=== PATIENT | female | born 1945 | race Caucasian/White ===

== ENCOUNTER 2017-12-25 10:08 | Emergency (ER) | payer OTHER, MEDICARE ==
[~2017-12-25] VITALS: Ht 162.6 cm; Wt 78.6 kg
[2017-12-25] MEDS ORDERED: IBUP200C5 PO (10:29)
[2017-12-25] MEDS ORDERED: OXYC-302 PO (10:29)
[2017-12-25 11:03] LABS: ALANINE AMINOTRANSFERASE 11 U/L (12-78); ALBUMIN 2.4 g/dL (3.4-5.0); ANION GAP 10 mmol/L (5-15); CALCIUM 8.6 mg/dL (8.5-10.1); CHLORIDE 102 mmol/L (98-107); CREATININE 0.48 mg/dL (0.55-1.02)
[2017-12-25 11:05] LABS: ALKALINE PHOSPHATASE 55 U/L (45-117); BILIRUBIN,TOTAL 0.5 mg/dL (0.2-1.0); TOTAL PROTEIN 6.6 g/dL (6.4-8.2)
[2017-12-25 11:07] LABS: CULTURE INDICATED? YES; MICROSCOPIC INDICATED
[2017-12-25 11:18] LABS: BASOPHILS # (AUTO) 0.09 x10^3/uL (0-0.1); BASOPHILS % (AUTO) 1 % (0-1); EOSINOPHILS # (AUTO) 0.01 x10^3/uL (0-0.4); EOSINOPHILS % (AUTO) 0 % (1-7); LYMPHOCYTES # (AUTO) 1.47 x10^3/uL (1-3.4); LYMPHOCYTES % (AUTO) 12 % (22-44); MD NO; MEAN CORPUSCULAR HEMOGLOBIN 29.4 pg (27.0-34.8); MEAN CORPUSCULAR HGB CONC 33.3 g/dL (32.4-35.8); MEAN CORPUSCULAR VOLUME 88.2 fL (80-100); MEAN PLATELET VOLUME 9.4 fL (7.4-10.4); MONOCYTES # (AUTO) 0.59 x10^3/uL (0.2-0.8); MONOCYTES % (AUTO) 5 % (2-9); NEUTROPHILS # (AUTO) 10.12 x10^3/uL (1.8-6.8); NEUTROPHILS % (AUTO) 82 % (42-75); PLATELET COUNT 296 x10^3/uL (130-400); RED BLOOD COUNT 5.12 x10^6/uL (3.82-5.3); RED CELL DISTRIBUTION WIDTH 13.9 % (9.6-15.2)
[2017-12-25] MEDS ORDERED: LIDOCAINE 1%, 20ML ONE (11:47)
[2017-12-25 13:53] VITALS: BP 120/67
== END 2017-12-25 13:56 | disposition home or self-care (01) ==
LOC: ED 11:15
DX: R06.00 Dyspnea, unspecified (principal); J90 Pleural effusion, not elsewhere classified; R82.99 Other abnormal findings in urine; Z87.891 Personal history of nicotine dependence; Z98.890 Other specified postprocedural states
CPT/HCPCS: 32555; 36415; 49083; 71045; 76700; 80053; 81001; 83690; 85025; 87086; 93005; 99285; J3490

== ENCOUNTER 2018-01-20 12:24 | Inpatient (IN) | payer OTHER, MEDICARE ==
[~2018-01-20] VITALS: Ht 162.6 cm; Wt 74.9 kg
[~2018-01-20 12:24] MED LIST: IBUP200C5 PO; OXYC-302 PO
[2018-01-20] MEDS ORDERED: PLEASE ENTER HEIGHT AND WEIGHT MC SCH (13:00)
[2018-01-20] MEDS ORDERED: SODIUM CHLORIDE FLUSH 10ML SYR IVF ONE (13:00)
[2018-01-20 13:31] LABS: MEAN CORPUSCULAR HEMOGLOBIN 28.7 pg (27.0-34.8); MEAN CORPUSCULAR VOLUME 86.8 fL (80-100); MEAN PLATELET VOLUME 8.5 fL (7.4-10.4); PLATELET COUNT 565 x10^3/uL (130-400); RED BLOOD COUNT 4.29 x10^6/uL (3.82-5.3); RED CELL DISTRIBUTION WIDTH 15.2 % (9.6-15.2)
[2018-01-20 13:33] LABS: PROTHROMBIN TIME 10.3 Seconds (9.6-11.5)
[2018-01-20 13:36] LABS: ALANINE AMINOTRANSFERASE 12 U/L (12-78); ALBUMIN 2.1 g/dL (3.4-5.0); ANION GAP 7 mmol/L (5-15); CALCIUM 8.2 mg/dL (8.5-10.1); CHLORIDE 104 mmol/L (98-107); CREATININE 0.65 mg/dL (0.55-1.02)
[2018-01-20 13:38] LABS: ALKALINE PHOSPHATASE 60 U/L (45-117); BILIRUBIN,TOTAL 0.2 mg/dL (0.2-1.0); TOTAL PROTEIN 6.3 g/dL (6.4-8.2)
[2018-01-20 14:07] LABS: BASOPHILS # (AUTO) 0.04 x10^3/uL (0-0.1); BASOPHILS % (AUTO) 0 % (0-1); EOSINOPHILS % (AUTO) 0 % (1-7); LYMPHOCYTES # (AUTO) 0.48 x10^3/uL (1-3.4); LYMPHOCYTES % (AUTO) 3 % (22-44); MD SCAN; MONOCYTES # (AUTO) 0.21 x10^3/uL (0.2-0.8); MONOCYTES % (AUTO) 1 % (2-9); NEUTROPHILS # (AUTO) 15.69 x10^3/uL (1.8-6.8); NEUTROPHILS % (AUTO) 96 % (42-75)
[2018-01-20] MEDS ORDERED: ONDA4TAB10 PO (15:08)
[2018-01-20] MEDS ORDERED: DEXA4TAB PO (15:08)
[2018-01-20] MEDS ORDERED: OMNIPAQUE 350 MG/ML, 100ML BOTTLE ONE (15:52)
[2018-01-20] MEDS ORDERED: SODIUM CHLORIDE FLUSH 10ML SYR IVF PRN (17:00)
[2018-01-20] MEDS ORDERED: LIDOCAINE 1%, 20ML ONE (17:09)
[2018-01-20 17:19] LABS: MICROSCOPIC NOT IND
[2018-01-20 17:21] LABS: CULTURE INDICATED? NO
[2018-01-20 18:46] LABS: CELLS COUNTED 81
[2018-01-20 18:55] VITALS: BP 109/70
[2018-01-20] MEDS ORDERED: POTASSIUM CHLORIDE 20 MEQ in SODIUM CHLORIDE 0.45% 1,000 ML IV SCH (22:30)
[2018-01-20] MEDS ORDERED: ONDANSETRON ODT 4 MG PO PRN (22:30)
[2018-01-21 01:49] VITALS: BP 116/64
[2018-01-21 04:48] LABS: ALBUMIN 1.7 g/dL (3.4-5.0); ANION GAP 5 mmol/L (5-15); CALCIUM 7.9 mg/dL (8.5-10.1); CHLORIDE 105 mmol/L (98-107)
[2018-01-21 04:51] LABS: ALANINE AMINOTRANSFERASE 9 U/L (12-78); ALKALINE PHOSPHATASE 51 U/L (45-117); BILIRUBIN,TOTAL 0.3 mg/dL (0.2-1.0); CREATININE 0.55 mg/dL (0.55-1.02); TOTAL PROTEIN 5.2 g/dL (6.4-8.2)
[2018-01-21 05:06] LABS: BASOPHILS % (AUTO) 0 % (0-1); EOSINOPHILS % (AUTO) 0 % (1-7); LYMPHOCYTES # (AUTO) 0.48 x10^3/uL (1-3.4); LYMPHOCYTES % (AUTO) 4 % (22-44); MD NO; MEAN CORPUSCULAR HEMOGLOBIN 28.5 pg (27.0-34.8); MEAN CORPUSCULAR VOLUME 86.5 fL (80-100); MEAN PLATELET VOLUME 8.9 fL (7.4-10.4); MONOCYTES # (AUTO) 0.16 x10^3/uL (0.2-0.8); MONOCYTES % (AUTO) 2 % (2-9); NEUTROPHILS # (AUTO) 10.55 x10^3/uL (1.8-6.8); NEUTROPHILS % (AUTO) 94 % (42-75); PLATELET COUNT 447 x10^3/uL (130-400); RED BLOOD COUNT 3.74 x10^6/uL (3.82-5.3); RED CELL DISTRIBUTION WIDTH 15.4 % (9.6-15.2)
[2018-01-21] MEDS: DEXAMETHASONE 4 MG TABLET PO SCH ×4 (06:05→23:52)
[2018-01-21 07:09] VITALS: BP 115/71
[2018-01-21 12:31] VITALS: BP 107/68
[2018-01-21 20:20] VITALS: BP 118/69
[2018-01-22 02:56] VITALS: BP 140/76
[2018-01-22] MEDS: DEXAMETHASONE 4 MG TABLET PO SCH ×4 (05:24→23:53)
[2018-01-22 06:30] VITALS: BP 118/73
[2018-01-22] MEDS: OXYcodone/APAP 5/325MG TABLET PO PRN (11:30)
[2018-01-22] MEDS ORDERED: LIDOCAINE 1%, 20ML ONE (11:49)
[2018-01-22 12:53] VITALS: BP 136/74
[2018-01-22 18:36] VITALS: BP 130/77
[2018-01-23 01:33] VITALS: BP 138/92
[2018-01-23] MEDS: DEXAMETHASONE 4 MG TABLET PO SCH ×3 (05:22→17:59)
[2018-01-23 07:48] VITALS: BP 138/83
[2018-01-23 13:29] VITALS: BP 117/74
[2018-01-23 19:39] VITALS: BP_SYST 112; BP_SYST 135; BP_DIAS 70; BP_DIAS 80
[2018-01-24] MEDS: DEXAMETHASONE 4 MG TABLET PO SCH ×4 (01:05→18:24)
[2018-01-24 03:21] VITALS: BP 144/82
[2018-01-24 06:57] VITALS: BP 134/84
[2018-01-24 09:48] LABS: MEAN CORPUSCULAR HEMOGLOBIN 27.9 pg (27.0-34.8); MEAN CORPUSCULAR HGB CONC 32.5 g/dL (32.4-35.8); MEAN CORPUSCULAR VOLUME 85.9 fL (80-100); MEAN PLATELET VOLUME 8.5 fL (7.4-10.4); PLATELET COUNT 522 x10^3/uL (130-400); RED BLOOD COUNT 4.48 x10^6/uL (3.82-5.3); RED CELL DISTRIBUTION WIDTH 15.9 % (9.6-15.2)
[2018-01-24 10:13] LABS: BASOPHILS # (AUTO) 0.01 x10^3/uL (0-0.1); BASOPHILS % (AUTO) 0 % (0-1); EOSINOPHILS % (AUTO) 0 % (1-7); LYMPHOCYTES # (AUTO) 0.32 x10^3/uL (1-3.4); LYMPHOCYTES % (AUTO) 5 % (22-44); MD SCAN; MONOCYTES # (AUTO) 0.01 x10^3/uL (0.2-0.8); MONOCYTES % (AUTO) 0 % (2-9); NEUTROPHILS # (AUTO) 6.68 x10^3/uL (1.8-6.8); NEUTROPHILS % (AUTO) 95 % (42-75)
[2018-01-24 13:00] VITALS: BP 144/86
[2018-01-24 19:24] VITALS: BP 137/82
[2018-01-24] MEDS: IBUPROFEN 200 MG TABLET PO PRN (21:54)
[2018-01-25] MEDS: DEXAMETHASONE 4 MG TABLET PO SCH ×5 (00:25→23:54)
[2018-01-25 04:10] VITALS: BP 156/80
[2018-01-25 05:11] LABS: MEAN CORPUSCULAR HEMOGLOBIN 28.2 pg (27.0-34.8); MEAN CORPUSCULAR HGB CONC 32.9 g/dL (32.4-35.8); MEAN CORPUSCULAR VOLUME 85.8 fL (80-100); MEAN PLATELET VOLUME 8.1 fL (7.4-10.4); PLATELET COUNT 406 x10^3/uL (130-400); RED BLOOD COUNT 3.97 x10^6/uL (3.82-5.3); RED CELL DISTRIBUTION WIDTH 15.8 % (9.6-15.2)
[2018-01-25 05:23] LABS: ANION GAP 5 mmol/L (5-15); CALCIUM 8.3 mg/dL (8.5-10.1); CHLORIDE 101 mmol/L (98-107); CREATININE 0.42 mg/dL (0.55-1.02)
[2018-01-25 05:59] LABS: BASOPHILS # (AUTO) 0.01 x10^3/uL (0-0.1); BASOPHILS % (AUTO) 0 % (0-1); EOSINOPHILS % (AUTO) 0 % (1-7); LYMPHOCYTES # (AUTO) 0.43 x10^3/uL (1-3.4); LYMPHOCYTES % (AUTO) 8 % (22-44); MD SCAN; MONOCYTES # (AUTO) 0.01 x10^3/uL (0.2-0.8); MONOCYTES % (AUTO) 0 % (2-9); NEUTROPHILS # (AUTO) 4.72 x10^3/uL (1.8-6.8); NEUTROPHILS % (AUTO) 91 % (42-75)
[2018-01-25 07:39] VITALS: BP 131/80
[2018-01-25] MEDS: OXYcodone/APAP 5/325MG TABLET PO PRN (08:54)
[2018-01-25] MEDS ORDERED: LIDOCAINE 1%, 20ML ONE (09:00)
[2018-01-25 12:22] VITALS: BP 116/63
[2018-01-25 19:53] VITALS: BP 116/72
[2018-01-26 02:02] VITALS: BP 126/69
[2018-01-26] MEDS: DEXAMETHASONE 4 MG TABLET PO SCH ×4 (06:11→23:51)
[2018-01-26 07:45] VITALS: BP 116/72
[2018-01-26 08:00] LABS: INTERNATIONAL NORMALIZED RATIO 1.03 (0.93-1.1); PROTHROMBIN TIME 10.7 Seconds (9.6-11.5)
[2018-01-26 08:10] LABS: MEAN CORPUSCULAR HEMOGLOBIN 27.9 pg (27.0-34.8); MEAN CORPUSCULAR HGB CONC 32.8 g/dL (32.4-35.8); MEAN CORPUSCULAR VOLUME 85.2 fL (80-100); MEAN PLATELET VOLUME 7.8 fL (7.4-10.4); PLATELET COUNT 376 x10^3/uL (130-400); RED BLOOD COUNT 4.08 x10^6/uL (3.82-5.3); RED CELL DISTRIBUTION WIDTH 15.2 % (9.6-15.2)
[2018-01-26 08:39] LABS: BASOPHILS # (AUTO) 0.01 x10^3/uL (0-0.1); BASOPHILS % (AUTO) 0 % (0-1); EOSINOPHILS % (AUTO) 0 % (1-7); LYMPHOCYTES # (AUTO) 0.51 x10^3/uL (1-3.4); LYMPHOCYTES % (AUTO) 13 % (22-44); MD SCAN; MONOCYTES # (AUTO) 0.02 x10^3/uL (0.2-0.8); MONOCYTES % (AUTO) 0 % (2-9); NEUTROPHILS # (AUTO) 3.56 x10^3/uL (1.8-6.8); NEUTROPHILS % (AUTO) 87 % (42-75)
[2018-01-26] MEDS ORDERED: EPINEPHRINE 1 MG/ML, 1ML ONE (10:28)
[2018-01-26] MEDS ORDERED: BUPIVACAINE/PF 0.5% ONE (10:28)
[2018-01-26] MEDS ORDERED: HEPARIN 1,000 UNITS/ML, 10ML ONE (10:28)
[2018-01-26] MEDS ORDERED: SUCCINYLCHOLINE 20 MG/ML, 10ML ONE (10:34)
[2018-01-26] MEDS ORDERED: PROPOFOL 10 MG/ML, 20ML ONE (10:34)
[2018-01-26] MEDS ORDERED: NEOSTIGMINE 1 MG/ML, 10ML ONE (10:34)
[2018-01-26] MEDS ORDERED: ROCURONIUM 10 MG/ML,10ML ONE (10:34)
[2018-01-26] MEDS ORDERED: ONDANSETRON 2MG/ML, 2ML ONE ×2 (10:34→12:38)
[2018-01-26] MEDS ORDERED: CEFAZOLIN 1,000 MG ONE (10:34)
[2018-01-26] MEDS ORDERED: GLYCOPYRROLATE 0.2MG/1ML, 5ML ONE (10:34)
[2018-01-26] MEDS ORDERED: DOXYCYCLINE IVPB ONE ×2 (11:00)
[2018-01-26] MEDS ORDERED: LIDOCAINE MPF 1% IVPB ONE ×2 (11:00)
[2018-01-26] MEDS ORDERED: ONDANSETRON 2MG/ML, 2ML IVPush PRN (11:30)
[2018-01-26] MEDS ORDERED: ACETAMINOPHEN 325 MG TABLET PO PRN (11:30)
[2018-01-26] MEDS ORDERED: METOPROLOL 1 MG/ML, 5ML IV PRN (11:30)
[2018-01-26] MEDS ORDERED: EPHEDRINE 50 MG/ML, 1ML IVPush PRN (11:30)
[2018-01-26] MEDS ORDERED: hydrALAzine 20 MG/ML, 1ML IV PRN (11:30)
[2018-01-26] MEDS ORDERED: ALBUTEROL SULFATE 2.5 MG/3 ML NPPB PRN (11:30)
[2018-01-26] MEDS ORDERED: PROMETHAZINE 25 MG/ML, 1ML IV PRN (11:30)
[2018-01-26] MEDS ORDERED: LABETALOL 5MG/ML, 20ML IV PRN (11:30)
[2018-01-26] MEDS ORDERED: OXYcodone 5 MG/5 ML ORAL.SOL UDC PO PRN (11:30)
[2018-01-26] MEDS: FENTANYL PF 100 MCG/2ML IV PRN ×2 (11:55→12:20)
[2018-01-26] MEDS: HYDROmorphone 1 MG/ML, 1ML IV PRN ×2 (12:02→12:13)
[2018-01-26 14:14] VITALS: BP 121/74
[2018-01-26 14:25] LABS: FIO2 NT %
[2018-01-26 19:29] VITALS: BP 120/70
[2018-01-26] MEDS: IBUPROFEN 200 MG TABLET PO PRN (23:51)
[2018-01-27 01:35] VITALS: BP 117/72
[2018-01-27] MEDS: OXYcodone/APAP 5/325MG TABLET PO PRN (01:49)
[2018-01-27] MEDS: DEXAMETHASONE 4 MG TABLET PO SCH ×4 (05:33→23:41)
[2018-01-27 08:09] VITALS: BP 119/71
[2018-01-27 12:35] VITALS: BP 113/65
[2018-01-27 18:48] VITALS: BP 123/72
[2018-01-28 00:27] VITALS: BP 113/68
[2018-01-28 03:53] LABS: BASOPHILS # (AUTO) 0.01 x10^3/uL (0-0.1); BASOPHILS % (AUTO) 0 % (0-1); EOSINOPHILS % (AUTO) 0 % (1-7); LYMPHOCYTES # (AUTO) 0.39 x10^3/uL (1-3.4); LYMPHOCYTES % (AUTO) 11 % (22-44); MD NO; MEAN CORPUSCULAR HEMOGLOBIN 28.3 pg (27.0-34.8); MEAN CORPUSCULAR HGB CONC 33.6 g/dL (32.4-35.8); MEAN CORPUSCULAR VOLUME 84.3 fL (80-100); MEAN PLATELET VOLUME 8.1 fL (7.4-10.4); MONOCYTES # (AUTO) 0.29 x10^3/uL (0.2-0.8); MONOCYTES % (AUTO) 8 % (2-9); NEUTROPHILS # (AUTO) 2.98 x10^3/uL (1.8-6.8); NEUTROPHILS % (AUTO) 81 % (42-75); PLATELET COUNT 241 x10^3/uL (130-400); RED BLOOD COUNT 3.83 x10^6/uL (3.82-5.3); RED CELL DISTRIBUTION WIDTH 15.6 % (9.6-15.2)
[2018-01-28 03:54] LABS: CALCIUM 7.8 mg/dL (8.5-10.1); CHLORIDE 98 mmol/L (98-107)
[2018-01-28 03:58] LABS: ALANINE AMINOTRANSFERASE 18 U/L (12-78); ALBUMIN 1.9 g/dL (3.4-5.0); ALKALINE PHOSPHATASE 51 U/L (45-117); ANION GAP 3 mmol/L (5-15); BILIRUBIN,TOTAL 0.3 mg/dL (0.2-1.0); TOTAL PROTEIN 5.2 g/dL (6.4-8.2)
[2018-01-28] MEDS: OXYcodone/APAP 5/325MG TABLET PO PRN (05:07)
[2018-01-28] MEDS: DEXAMETHASONE 4 MG TABLET PO SCH ×4 (05:07→23:11)
[2018-01-28 08:19] VITALS: BP 131/78
[2018-01-28 13:24] VITALS: BP 108/73
[2018-01-28 19:18] VITALS: BP 104/61
[2018-01-29 03:09] VITALS: BP 117/69
[2018-01-29 04:47] LABS: MEAN CORPUSCULAR HEMOGLOBIN 28.3 pg (27.0-34.8); MEAN CORPUSCULAR HGB CONC 33.6 g/dL (32.4-35.8); MEAN CORPUSCULAR VOLUME 84.3 fL (80-100); MEAN PLATELET VOLUME 7.9 fL (7.4-10.4); PLATELET COUNT 222 x10^3/uL (130-400); RED BLOOD COUNT 3.75 x10^6/uL (3.82-5.3); RED CELL DISTRIBUTION WIDTH 15.5 % (9.6-15.2)
[2018-01-29 04:54] LABS: ANION GAP 7 mmol/L (5-15); CALCIUM 8.2 mg/dL (8.5-10.1); CHLORIDE 100 mmol/L (98-107); CREATININE 0.45 mg/dL (0.55-1.02)
[2018-01-29] MEDS: DEXAMETHASONE 4 MG TABLET PO SCH ×3 (05:07→18:09)
[2018-01-29] MEDS: OXYcodone/APAP 5/325MG TABLET PO PRN (05:08)
[2018-01-29 05:19] LABS: MD YES
[2018-01-29 05:23] LABS: <PLATELET ESTIMATE> ADEQUATE; <RBC MORPHOLOGY> NORMAL; LYMPH#(MANUAL) 0.78 x10^3/uL (1-3.4); LYMPHS% (MANUAL) 26 % (22-44); MONOS#(MANUAL) 0.42 x10^3/uL (0.3-2.7); MONOS% (MANUAL) 14 % (2-9); REACTIVE LYMPHS # (MANUAL) 0.03 x10^3/uL (0-0); REACTIVE LYMPHS % (MANUAL) 1 % (0-0); SEG#(MANUAL) 1.77 x10^3/uL (1.8-6.8); SEGS% (MANUAL) 59 % (42-75)
[2018-01-29 05:24] LABS: <PLT MORPHOLOGY> NORMAL PLT MORPH
[2018-01-29 07:25] VITALS: BP 132/78
[2018-01-29 13:20] VITALS: BP 124/71
[2018-01-29 19:47] VITALS: BP 114/73
[2018-01-30] MEDS: DEXAMETHASONE 4 MG TABLET PO SCH ×3 (00:11→12:28)
[2018-01-30 02:24] VITALS: BP 114/71
[2018-01-30 05:59] LABS: MEAN CORPUSCULAR HEMOGLOBIN 28.8 pg (27.0-34.8); MEAN CORPUSCULAR VOLUME 84.6 fL (80-100); MEAN PLATELET VOLUME 8.1 fL (7.4-10.4); PLATELET COUNT 190 x10^3/uL (130-400); RED CELL DISTRIBUTION WIDTH 15.4 % (9.6-15.2)
[2018-01-30 06:29] LABS: MD YES
[2018-01-30 06:34] LABS: <PLATELET ESTIMATE> ADEQUATE; <PLT MORPHOLOGY> NORMAL PLT MORPH; <RBC MORPHOLOGY> NORMAL; LYMPH#(MANUAL) 0.93 x10^3/uL (1-3.4); LYMPHS% (MANUAL) 30 % (22-44); MONOS#(MANUAL) 0.84 x10^3/uL (0.3-2.7); MONOS% (MANUAL) 27 % (2-9); SEG#(MANUAL) 1.33 x10^3/uL (1.8-6.8); SEGS% (MANUAL) 43 % (42-75)
[2018-01-30 08:19] VITALS: BP 119/78
== END 2018-01-30 14:01 | disposition home or self-care (01) | DRG 754 ==
LOC: ED 16:50 → EDIP 16:51 → ED 18:02 → 3NW 18:22
PROVIDERS: ADMIT Specialist; ATTEND Specialist
PROC: 0W993ZZ Drainage of Right Pleural Cavity, Percutaneous Approach (ICD-10-PCS; 2018-01-20)
PROC: 0W9G3ZZ Drainage of Peritoneal Cavity, Percutaneous Approach (ICD-10-PCS; 2018-01-22)
PROC: 0W9B3ZZ Drainage of Left Pleural Cavity, Percutaneous Approach (ICD-10-PCS; 2018-01-25)
PROC: 0W993ZZ Drainage of Right Pleural Cavity, Percutaneous Approach (ICD-10-PCS; 2018-01-25)
PROC: B548ZZA Ultrasonography of Superior Vena Cava, Guidance (ICD-10-PCS; 2018-01-26)
PROC: 3E0L4GC Introduction of Other Therapeutic Substance into Pleural Cavity, Percutaneous Endoscopic Approach (ICD-10-PCS; 2018-01-26)
PROC: 0W9930Z Drainage of Right Pleural Cavity with Drainage Device, Percutaneous Approach (ICD-10-PCS; 2018-01-26)
PROC: 0JH60WZ Insertion of Totally Implantable Vascular Access Device into Chest Subcutaneous Tissue and Fascia, Open Approach (ICD-10-PCS; principal; 2018-01-26 11:30)
PROC: 02HV33Z Insertion of Infusion Device into Superior Vena Cava, Percutaneous Approach (ICD-10-PCS; 2018-01-26 11:30)
PROC: 0WP930Z Removal of Drainage Device from Right Pleural Cavity, Percutaneous Approach (ICD-10-PCS; 2018-01-29)
DX: C56.9 Malignant neoplasm of unspecified ovary (principal); J96.01 Acute respiratory failure with hypoxia; J91.0 Malignant pleural effusion; C78.6 Secondary malignant neoplasm of retroperitoneum and peritoneum; R18.8 Other ascites; Z99.81 Dependence on supplemental oxygen; D70.9 Neutropenia, unspecified; J98.11 Atelectasis; Z87.891 Personal history of nicotine dependence; Z90.710 Acquired absence of both cervix and uterus; Z90.49 Acquired absence of other specified parts of digestive tract; Z87.01 Personal history of pneumonia (recurrent); Z92.21 Personal history of antineoplastic chemotherapy
CPT/HCPCS: 32555; 36415; 36600; 49083; 71045; 71046; 71275; 76705; 77001; 80048; 80053; 81003; 82150; 82803; 82945; 83605; 83615; 83986; 84145; 84157; 85025; 85610; 85730; 87040; 87070; 87205; 88112; 88305; 88341; 88342; 89051; 93005; 94640; 99285; C1729; J0171; J0690; J1170; J1644; J2405; J2704; J2710; J3010; J3480; J3490; Q0162; Q9967; C1788; G0461; J0330

== ENCOUNTER 2018-02-15 13:55 | Inpatient (IN) | payer OTHER, MEDICARE ==
[~2018-02-15] VITALS: Ht 162.6 cm; Wt 71.6 kg
[~2018-02-15 13:55] MED LIST changes: +DEXA4TAB PO; +ONDA4TAB10 PO
[2018-02-15 14:40] LABS: BASOPHILS # (AUTO) 0.02 x10^3/uL (0-0.1); BASOPHILS % (AUTO) 1 % (0-1); EOSINOPHILS # (AUTO) 0.05 x10^3/uL (0-0.4); EOSINOPHILS % (AUTO) 1 % (1-7); LYMPHOCYTES # (AUTO) 1.86 x10^3/uL (1-3.4); LYMPHOCYTES % (AUTO) 35 % (22-44); MD NO; MEAN CORPUSCULAR HEMOGLOBIN 27.8 pg (27.0-34.8); MEAN CORPUSCULAR HGB CONC 32.8 g/dL (32.4-35.8); MEAN CORPUSCULAR VOLUME 84.9 fL (80-100); MEAN PLATELET VOLUME 8.2 fL (7.4-10.4); MONOCYTES # (AUTO) 0.39 x10^3/uL (0.2-0.8); MONOCYTES % (AUTO) 7 % (2-9); NEUTROPHILS # (AUTO) 3.05 x10^3/uL (1.8-6.8); NEUTROPHILS % (AUTO) 57 % (42-75); PLATELET COUNT 587 x10^3/uL (130-400); RED BLOOD COUNT 4.17 x10^6/uL (3.82-5.3); RED CELL DISTRIBUTION WIDTH 19.5 % (9.6-15.2)
[2018-02-15 14:50] LABS: ALANINE AMINOTRANSFERASE 13 U/L (12-78); ALBUMIN 2.2 g/dL (3.4-5.0); ANION GAP 5 mmol/L (5-15); CALCIUM 8.9 mg/dL (8.5-10.1); CHLORIDE 103 mmol/L (98-107); CREATININE 0.42 mg/dL (0.55-1.02)
[2018-02-15 14:52] LABS: ALKALINE PHOSPHATASE 56 U/L (45-117); BILIRUBIN,TOTAL 0.5 mg/dL (0.2-1.0); TOTAL PROTEIN 6.4 g/dL (6.4-8.2)
[2018-02-15] MEDS ORDERED: SODIUM CHLORIDE FLUSH 10ML SYR IVF ONE (16:00)
[2018-02-15] MEDS ORDERED: LIDOCAINE 2%, 10ML ONE ×2 (16:15→16:47)
[2018-02-15 16:17] LABS: INTERNATIONAL NORMALIZED RATIO 1.02 (0.93-1.1); PROTHROMBIN TIME 10.6 Seconds (9.6-11.5)
[2018-02-15] MEDS ORDERED: SODIUM CHLORIDE FLUSH 10ML SYR IVF PRN (16:30)
[2018-02-15 17:22] VITALS: BP 119/69
[2018-02-15] MEDS ORDERED: OXYcodone/APAP 5/325MG TABLET PO PRN (19:00)
[2018-02-15] MEDS ORDERED: ONDANSETRON 4 MG TABLET PO PRN (19:00)
[2018-02-15 19:29] LABS: BASOPHILS # (AUTO) 0.01 x10^3/uL (0-0.1); BASOPHILS % (AUTO) 0 % (0-1); EOSINOPHILS # (AUTO) 0.04 x10^3/uL (0-0.4); EOSINOPHILS % (AUTO) 1 % (1-7); LYMPHOCYTES # (AUTO) 0.89 x10^3/uL (1-3.4); LYMPHOCYTES % (AUTO) 19 % (22-44); MD NO; MEAN CORPUSCULAR HEMOGLOBIN 28.1 pg (27.0-34.8); MEAN CORPUSCULAR VOLUME 85.4 fL (80-100); MEAN PLATELET VOLUME 7.9 fL (7.4-10.4); MONOCYTES # (AUTO) 0.23 x10^3/uL (0.2-0.8); MONOCYTES % (AUTO) 5 % (2-9); NEUTROPHILS # (AUTO) 3.44 x10^3/uL (1.8-6.8); NEUTROPHILS % (AUTO) 75 % (42-75); PLATELET COUNT 503 x10^3/uL (130-400); RED BLOOD COUNT 3.92 x10^6/uL (3.82-5.3); RED CELL DISTRIBUTION WIDTH 19.4 % (9.6-15.2)
[2018-02-15 19:41] LABS: ALANINE AMINOTRANSFERASE 12 U/L (12-78); ALBUMIN 1.9 g/dL (3.4-5.0); ANION GAP 6 mmol/L (5-15); CALCIUM 8.1 mg/dL (8.5-10.1); CHLORIDE 104 mmol/L (98-107); CREATININE 0.68 mg/dL (0.55-1.02)
[2018-02-15 19:44] LABS: ALKALINE PHOSPHATASE 49 U/L (45-117); BILIRUBIN,TOTAL 0.3 mg/dL (0.2-1.0); TOTAL PROTEIN 5.6 g/dL (6.4-8.2)
[2018-02-15 20:13] VITALS: BP 109/66
[2018-02-15] MEDS: SODIUM CHLORIDE 0.45% 1,000 ML IV SCH (20:38)
[2018-02-16 02:07] VITALS: BP 105/56
[2018-02-16 07:51] VITALS: BP 118/69
[2018-02-16] MEDS: SODIUM CHLORIDE 0.45% 1,000 ML IV SCH (07:51)
[2018-02-16 14:06] VITALS: BP 104/67
[2018-02-16 14:16] VITALS: BP 153/72
== END 2018-02-16 17:45 | disposition home or self-care (01) | DRG 755 ==
LOC: ED 16:01 → EDIP 16:02 → ED 16:13 → 3NW 17:15
PROVIDERS: ADMIT Specialist; ATTEND Specialist
PROC: 0W993ZZ Drainage of Right Pleural Cavity, Percutaneous Approach (ICD-10-PCS; principal; 2018-02-15)
PROC: 0W9G3ZZ Drainage of Peritoneal Cavity, Percutaneous Approach (ICD-10-PCS; 2018-02-16)
PROC: 0W9B3ZZ Drainage of Left Pleural Cavity, Percutaneous Approach (ICD-10-PCS; 2018-02-16)
DX: C56.9 Malignant neoplasm of unspecified ovary (principal); R18.0 Malignant ascites; J90 Pleural effusion, not elsewhere classified; I50.9 Heart failure, unspecified; Z85.43 Personal history of malignant neoplasm of ovary; Z87.891 Personal history of nicotine dependence; Z90.710 Acquired absence of both cervix and uterus; Z90.49 Acquired absence of other specified parts of digestive tract
CPT/HCPCS: 32555; 36415; 49083; 71045; 80053; 83690; 85025; 85610; 85730; 93005; 99285; J3490

== ENCOUNTER 2018-06-08 08:23 | Day surgery (SDC) | payer MEDICARE, OTHER ==
[~2018-06-08] VITALS: Ht 160 cm; Wt 82.0 kg
[~2018-06-08 08:23] MED LIST changes: +APIX2.5T PO; +DEXA4TAB66 PO; +MAGN400T36 PO; +POTA20TA14 PO; +WARF2.5T PO-COUM; +WARF3TAB PO
[2018-06-08 09:25] VITALS: BP 108/66
[2018-06-08] MEDS ORDERED: SODIUM CHLORIDE 0.9% 1,000 ML IV SCH (10:00)
[2018-06-08] MEDS ORDERED: LIDOCAINE-MPF 2% ,5ML ONE (10:12)
[2018-06-08] MEDS ORDERED: MIDAZOLAM 1 MG/ML, 5ML ONE (11:06)
[2018-06-08] MEDS ORDERED: FLUMAZENIL 0.1 MG/1 ML, 5ML ONE (11:06)
[2018-06-08] MEDS ORDERED: NALOXONE 1 MG/ML, 2ML ONE (11:06)
[2018-06-08] MEDS ORDERED: FENTANYL PF 100 MCG/2ML ONE (11:06)
[2018-06-08] MEDS ORDERED: VISIPAQUE 320MG/ML, 50ML BOTTLE ONE (11:59)
== END 2018-06-08 13:30 ==
LOC: OUT 08:23
PROVIDERS: ATTEND Specialist
DX: R18.8 Other ascites (principal); J44.9 Chronic obstructive pulmonary disease, unspecified; I50.9 Heart failure, unspecified; Z86.711 Personal history of pulmonary embolism; Z98.890 Other specified postprocedural states; Z72.89 Other problems related to lifestyle; Z87.891 Personal history of nicotine dependence; Z79.899 Other long term (current) drug therapy; Z85.43 Personal history of malignant neoplasm of ovary
CPT/HCPCS: 32555; 37191; 76937; 99156; 99157; C1769; C1880; C1894; J2250; J3010; J3490; J7030; Q9967; J2310

== ENCOUNTER → 2018-08-15 | Outpatient (CLI) | payer MEDICARE, OTHER ==
[~2018-08-15] MED LIST changes: +IBUP-1623 PO; -IBUP200C5 PO; +ONDA4TAB7 PO; +OXYC-306 PO
== END | disposition home or self-care (01) ==
LOC: CFH 11:40
PROVIDERS: ATTEND Physician Assistant Surgical
DX: M48.54XA Collapsed vertebra, not elsewhere classified, thoracic region, initial encounter for fracture (principal); M51.34 Other intervertebral disc degeneration, thoracic region; J90 Pleural effusion, not elsewhere classified
CPT/HCPCS: 72072

== ENCOUNTER → 2018-09-07 | Outpatient (CLI) | payer MEDICARE, OTHER ==
[2018-09-07 12:34] LABS: BASOPHILS # (AUTO) 0.02 x10^3/uL (0-0.1); BASOPHILS % (AUTO) 0 % (0-1); EOSINOPHILS # (AUTO) 0.02 x10^3/uL (0-0.4); EOSINOPHILS % (AUTO) 0 % (1-7); LYMPHOCYTES # (AUTO) 0.92 x10^3/uL (1-3.4); LYMPHOCYTES % (AUTO) 6 % (22-44); MD NO; MEAN CORPUSCULAR HEMOGLOBIN 25.5 pg (27.0-34.8); MEAN CORPUSCULAR HGB CONC 31.9 g/dL (32.4-35.8); MEAN CORPUSCULAR VOLUME 79.8 fL (80-100); MEAN PLATELET VOLUME 9.5 fL (7.4-10.4); MONOCYTES # (AUTO) 0.45 x10^3/uL (0.2-0.8); MONOCYTES % (AUTO) 3 % (2-9); NEUTROPHILS % (AUTO) 90 % (42-75); PLATELET COUNT 409 x10^3/uL (130-400); RED CELL DISTRIBUTION WIDTH 19.7 % (9.6-15.2)
[2018-09-07 12:46] LABS: ALANINE AMINOTRANSFERASE 26 U/L (12-78); ALBUMIN 3.6 g/dL (3.4-5.0); ANION GAP 10 mmol/L (5-15); CALCIUM 10.4 mg/dL (8.5-10.1); CHLORIDE 96 mmol/L (98-107)
[2018-09-07 12:48] LABS: ALKALINE PHOSPHATASE 135 U/L (45-117); BILIRUBIN,TOTAL 0.7 mg/dL (0.2-1.0); CREATININE 0.57 mg/dL (0.55-1.02)
== END | disposition home or self-care (01) ==
LOC: CFH 09:07
PROVIDERS: ATTEND Physician Assistant Surgical
DX: Z13.820 Encounter for screening for osteoporosis (principal); S32.000A Wedge compression fracture of unspecified lumbar vertebra, initial encounter for closed fracture; X58.XXXA Exposure to other specified factors, initial encounter; Y93.89 Activity, other specified; Y92.89 Other specified places as the place of occurrence of the external cause; Y99.8 Other external cause status; M85.88 Other specified disorders of bone density and structure, other site; M51.36 Other intervertebral disc degeneration, lumbar region; M41.86 Other forms of scoliosis, lumbar region
CPT/HCPCS: 36415; 72100; 77080; 80053; 85025; 86304

== ENCOUNTER 2018-09-22 14:41 | Emergency (ER) | payer MEDICARE, OTHER ==
[~2018-09-22] VITALS: Ht 160 cm; Wt 80.0 kg
[~2018-09-22 14:41] MED LIST changes: -CALC1CAP8 PO; -METH-356 PO; -MIRT15TA3 PO; -OMNIPAQUE 350 MG/ML, 100ML BOTTLE ONE; -POLY17PO5 PO; -POTA25TA4 PO; -TAMS-11 PO
[2018-09-22] MEDS ORDERED: SODIUM CHLORIDE FLUSH 10ML SYR IVF ONE (15:30)
[2018-09-22 15:45] LABS: BASOPHILS # (AUTO) 0.03 x10^3/uL (0-0.1); BASOPHILS % (AUTO) 1 % (0-1); EOSINOPHILS # (AUTO) 0.09 x10^3/uL (0-0.4); EOSINOPHILS % (AUTO) 1 % (1-7); LYMPHOCYTES # (AUTO) 1.79 x10^3/uL (1-3.4); LYMPHOCYTES % (AUTO) 26 % (22-44); MD NO; MEAN CORPUSCULAR HEMOGLOBIN 25.4 pg (27.0-34.8); MEAN CORPUSCULAR HGB CONC 32.5 g/dL (32.4-35.8); MEAN PLATELET VOLUME 8.6 fL (7.4-10.4); MONOCYTES # (AUTO) 0.51 x10^3/uL (0.2-0.8); MONOCYTES % (AUTO) 7 % (2-9); NEUTROPHILS # (AUTO) 4.57 x10^3/uL (1.8-6.8); NEUTROPHILS % (AUTO) 65 % (42-75); PLATELET COUNT 311 x10^3/uL (130-400); RED BLOOD COUNT 4.98 x10^6/uL (3.82-5.3); RED CELL DISTRIBUTION WIDTH 20.2 % (9.6-15.2)
[2018-09-22 15:56] LABS: ALANINE AMINOTRANSFERASE 18 U/L (12-78); ALBUMIN 3.1 g/dL (3.4-5.0); ANION GAP 10 mmol/L (5-15); CALCIUM 9.6 mg/dL (8.5-10.1); CHLORIDE 98 mmol/L (98-107); CREATININE 0.51 mg/dL (0.55-1.02)
[2018-09-22 15:58] LABS: ALKALINE PHOSPHATASE 110 U/L (45-117); BILIRUBIN,TOTAL 0.4 mg/dL (0.2-1.0); TOTAL PROTEIN 7.4 g/dL (6.4-8.2)
[2018-09-22] MEDS ORDERED: morphine SULFATE 10 MG/ML, 1ML IVPush ONE (16:00)
[2018-09-22] MEDS ORDERED: POLY17PO5 PO (16:07)
[2018-09-22] MEDS ORDERED: POTA25TA4 PO (16:07)
[2018-09-22] MEDS ORDERED: CALC1CAP8 PO (16:07)
[2018-09-22] MEDS ORDERED: METH-356 PO (16:07)
[2018-09-22] MEDS ORDERED: TAMS-11 PO (16:07)
[2018-09-22] MEDS ORDERED: MIRT15TA3 PO (16:07)
[2018-09-22] MEDS ORDERED: MORPHINE SULFATE 4 MG/ML, 1ML ONE (16:16)
[2018-09-22 16:52] LABS: MICROSCOPIC AUTO
[2018-09-22 16:55] LABS: CULTURE INDICATED? YES
[2018-09-22 17:36] VITALS: BP 137/75
== END 2018-09-22 18:02 | disposition home or self-care (01) ==
LOC: ED 17:44
DX: C34.91 Malignant neoplasm of unspecified part of right bronchus or lung (principal); J91.0 Malignant pleural effusion; C79.60 Secondary malignant neoplasm of unspecified ovary; N30.00 Acute cystitis without hematuria; R10.84 Generalized abdominal pain; K59.00 Constipation, unspecified
CPT/HCPCS: 36415; 71045; 74177; 80053; 81001; 83690; 85025; 87077; 87086; 87186; 96374; 99285; J2270

== ENCOUNTER → 2018-09-22 | Outpatient (CLI) | payer MEDICARE, OTHER ==
[~2018-09-22] MED LIST changes: +CALC1CAP8 PO; +METH-356 PO; +MIRT15TA3 PO; +OMNIPAQUE 350 MG/ML, 100ML BOTTLE ONE; +POLY17PO5 PO; +POTA25TA4 PO; +TAMS-11 PO
== END | disposition home or self-care (01) ==
LOC: CFH 13:37
PROVIDERS: ATTEND Physician Assistant Surgical
DX: M48.54XA Collapsed vertebra, not elsewhere classified, thoracic region, initial encounter for fracture (principal)
CPT/HCPCS: 72072; Q9967

== ENCOUNTER 2018-11-14 15:01 | Inpatient (IN) | payer MEDICARE, OTHER ==
[~2018-11-14] VITALS: Ht 160 cm; Wt 83.0 kg
[~2018-11-14 15:01] MED LIST changes: +CALC1CAP8 PO; +METH10TA2 PO; +MIRT15TA3 PO; +POLY17PO5 PO; +POTA25TA4 PO; +TAMS-11 PO
[2018-11-14 16:34] VITALS: BP 122/88
[2018-11-14 16:52] LABS: BASOPHILS # (AUTO) 0.04 x10^3/uL (0-0.1); BASOPHILS % (AUTO) 0 % (0-1); EOSINOPHILS # (AUTO) 0.01 x10^3/uL (0-0.4); EOSINOPHILS % (AUTO) 0 % (1-7); LYMPHOCYTES # (AUTO) 1.46 x10^3/uL (1-3.4); LYMPHOCYTES % (AUTO) 10 % (22-44); MD NO; MEAN CORPUSCULAR HEMOGLOBIN 25.2 pg (27.0-34.8); MEAN CORPUSCULAR HGB CONC 32.6 g/dL (32.4-35.8); MEAN CORPUSCULAR VOLUME 77.3 fL (80-100); MEAN PLATELET VOLUME 8.8 fL (7.4-10.4); MONOCYTES # (AUTO) 0.44 x10^3/uL (0.2-0.8); MONOCYTES % (AUTO) 3 % (2-9); NEUTROPHILS # (AUTO) 13.06 x10^3/uL (1.8-6.8); NEUTROPHILS % (AUTO) 87 % (42-75); PLATELET COUNT 428 x10^3/uL (130-400); RED BLOOD COUNT 6.11 x10^6/uL (3.82-5.3); RED CELL DISTRIBUTION WIDTH 20.3 % (9.6-15.2)
[2018-11-14 17:00] LABS: ALANINE AMINOTRANSFERASE 11 U/L (12-78); ALBUMIN 3.3 g/dL (3.4-5.0); ANION GAP 15 mmol/L (5-15); CHLORIDE 89 mmol/L (98-107); CREATININE 1.07 mg/dL (0.55-1.02)
[2018-11-14] MEDS ORDERED: LACTATED RINGERS 1,000 ML IV SCH (17:00)
[2018-11-14] MEDS ORDERED: ZOLPIDEM 10MG TABLET PO PRN (17:00)
[2018-11-14 17:02] LABS: ALKALINE PHOSPHATASE 91 U/L (45-117); BILIRUBIN,TOTAL 0.7 mg/dL (0.2-1.0); TOTAL PROTEIN 7.8 g/dL (6.4-8.2)
[2018-11-14] MEDS ORDERED: IBUPROFEN 200 MG TABLET PO PRN (17:30)
[2018-11-14] MEDS ORDERED: ONDANSETRON 2MG/ML, 2ML IVPush PRN (17:30)
[2018-11-14 17:45] VITALS: BP 122/88
[2018-11-14] MEDS: morphine SULFATE 10 MG/ML, 1ML IV PRN ×3 (18:19→23:48)
[2018-11-14] MEDS ORDERED: OMNIPAQUE 350 MG/ML, 100ML BOTTLE ONE (19:28)
[2018-11-14] MEDS: METHADONE 10 MG TABLET PO SCH (19:52)
[2018-11-14] MEDS: APIXABAN 2.5 MG TABLET PO SCH (19:52)
[2018-11-14] MEDS: OXYcodone/APAP 7.5/325MG TABLET PO PRN (20:25)
[2018-11-14] MEDS: K-LYTE 25 MEQ TABLET.EFF PO SCH (20:26)
[2018-11-14 20:56] VITALS: BP 114/76
[2018-11-14] MEDS: POTASSIUM CHLORIDE 20 MEQ in LACTATED RINGERS 1,000 ML IV SCH (22:08)
[2018-11-14 22:59] LABS: MICROSCOPIC NOT IND
[2018-11-15 01:21] LABS: CLOSTRIDIUM DIFFICILE ANTIGEN NEGATIVE; CLOSTRIDIUM DIFFICILE TOXIN NEGATIVE (Negative)
[2018-11-15] MEDS: ZOLPIDEM 5MG TABLET PO PRN (01:30)
[2018-11-15 02:02] VITALS: BP 126/68
[2018-11-15 06:01] LABS: ALANINE AMINOTRANSFERASE 12 U/L (12-78); ALBUMIN 2.4 g/dL (3.4-5.0); ANION GAP 10 mmol/L (5-15); CALCIUM 8.4 mg/dL (8.5-10.1); CHLORIDE 92 mmol/L (98-107); CREATININE 0.97 mg/dL (0.55-1.02)
[2018-11-15 06:02] LABS: ALKALINE PHOSPHATASE 68 U/L (45-117); BILIRUBIN,TOTAL 0.5 mg/dL (0.2-1.0); TOTAL PROTEIN 5.6 g/dL (6.4-8.2)
[2018-11-15 06:05] LABS: BASOPHILS # (AUTO) 0.13 x10^3/uL (0-0.1); BASOPHILS % (AUTO) 1 % (0-1); EOSINOPHILS # (AUTO) 0.07 x10^3/uL (0-0.4); EOSINOPHILS % (AUTO) 1 % (1-7); LYMPHOCYTES # (AUTO) 1.75 x10^3/uL (1-3.4); LYMPHOCYTES % (AUTO) 16 % (22-44); MD NO; MEAN CORPUSCULAR HEMOGLOBIN 25.3 pg (27.0-34.8); MEAN CORPUSCULAR HGB CONC 32.9 g/dL (32.4-35.8); MEAN CORPUSCULAR VOLUME 76.8 fL (80-100); MEAN PLATELET VOLUME 8.8 fL (7.4-10.4); MONOCYTES # (AUTO) 0.85 x10^3/uL (0.2-0.8); MONOCYTES % (AUTO) 8 % (2-9); NEUTROPHILS # (AUTO) 8.42 x10^3/uL (1.8-6.8); NEUTROPHILS % (AUTO) 75 % (42-75); PLATELET COUNT 389 x10^3/uL (130-400); RED BLOOD COUNT 5.08 x10^6/uL (3.82-5.3); RED CELL DISTRIBUTION WIDTH 20.3 % (9.6-15.2)
[2018-11-15 07:13] VITALS: BP 129/83
[2018-11-15] MEDS: OXYcodone/APAP 7.5/325MG TABLET PO PRN ×2 (08:22→22:40)
[2018-11-15] MEDS: MIRTAZAPINE 15 MG TAB.RAPDIS PO SCH (08:24)
[2018-11-15] MEDS: MIRTAZAPINE 15 MG TABLET PO SCH (08:24)
[2018-11-15] MEDS: K-LYTE 25 MEQ TABLET.EFF PO SCH ×2 (08:24→20:21)
[2018-11-15] MEDS: APIXABAN 2.5 MG TABLET PO SCH ×2 (08:24→20:20)
[2018-11-15] MEDS: METHADONE 10 MG TABLET PO SCH ×2 (08:24→20:20)
[2018-11-15] MEDS: TAMSULOSIN 0.4 MG CAP.ER.24H PO SCH (08:24)
[2018-11-15] MEDS: POTASSIUM CHLORIDE 20 MEQ in LACTATED RINGERS 1,000 ML IV SCH ×2 (08:26→20:34)
[2018-11-15 14:28] VITALS: BP 109/69
[2018-11-15 19:21] VITALS: BP 128/77
[2018-11-16] MEDS: ONDANSETRON 2MG/ML, 2ML IV PRN ×4 (01:22→23:28)
[2018-11-16] MEDS: morphine SULFATE 10 MG/ML, 1ML IV PRN ×3 (01:22→23:29)
[2018-11-16 01:28] VITALS: BP 119/89
[2018-11-16] MEDS: POTASSIUM CHLORIDE 20 MEQ in LACTATED RINGERS 1,000 ML IV SCH ×2 (05:32→17:18)
[2018-11-16 07:18] VITALS: BP 123/87
[2018-11-16] MEDS: K-LYTE 25 MEQ TABLET.EFF PO SCH ×2 (09:00→21:00)
[2018-11-16] MEDS: MIRTAZAPINE 15 MG TABLET PO SCH (09:00)
[2018-11-16] MEDS: MIRTAZAPINE 15 MG TAB.RAPDIS PO SCH (09:43)
[2018-11-16] MEDS: APIXABAN 2.5 MG TABLET PO SCH ×2 (09:43→20:12)
[2018-11-16] MEDS: METHADONE 10 MG TABLET PO SCH ×2 (09:43→20:12)
[2018-11-16] MEDS: TAMSULOSIN 0.4 MG CAP.ER.24H PO SCH (09:43)
[2018-11-16 14:13] VITALS: BP 127/84
[2018-11-16] MEDS ORDERED: BISACODYL 10 MG SUPP PR PRN (16:30)
[2018-11-16 19:30] VITALS: BP 107/66
[2018-11-17] MEDS: POTASSIUM CHLORIDE 20 MEQ in LACTATED RINGERS 1,000 ML IV SCH ×3 (02:02→23:21)
[2018-11-17 02:06] VITALS: BP 100/65
[2018-11-17 06:32] LABS: ALBUMIN 1.8 g/dL (3.4-5.0); ANION GAP 6 mmol/L (5-15); CALCIUM 8.3 mg/dL (8.5-10.1); CHLORIDE 97 mmol/L (98-107)
[2018-11-17 06:37] LABS: ALANINE AMINOTRANSFERASE 9 U/L (12-78); ALKALINE PHOSPHATASE 66 U/L (45-117); BILIRUBIN,TOTAL 0.5 mg/dL (0.2-1.0); CREATININE 0.68 mg/dL (0.55-1.02); TOTAL PROTEIN 4.7 g/dL (6.4-8.2)
[2018-11-17 06:41] LABS: MEAN CORPUSCULAR HEMOGLOBIN 25.2 pg (27.0-34.8); MEAN CORPUSCULAR HGB CONC 32.4 g/dL (32.4-35.8); MEAN CORPUSCULAR VOLUME 77.8 fL (80-100); MEAN PLATELET VOLUME 8.3 fL (7.4-10.4); PLATELET COUNT 365 x10^3/uL (130-400); RED CELL DISTRIBUTION WIDTH 20.1 % (9.6-15.2)
[2018-11-17 06:42] LABS: BASOPHILS # (AUTO) 0.02 x10^3/uL (0-0.1); BASOPHILS % (AUTO) 0 % (0-1); EOSINOPHILS # (AUTO) 0.05 x10^3/uL (0-0.4); EOSINOPHILS % (AUTO) 1 % (1-7); LYMPHOCYTES # (AUTO) 1.68 x10^3/uL (1-3.4); LYMPHOCYTES % (AUTO) 15 % (22-44); MD SCAN; MONOCYTES # (AUTO) 0.78 x10^3/uL (0.2-0.8); MONOCYTES % (AUTO) 7 % (2-9); NEUTROPHILS # (AUTO) 8.53 x10^3/uL (1.8-6.8); NEUTROPHILS % (AUTO) 77 % (42-75)
[2018-11-17] MEDS: MIRTAZAPINE 15 MG TABLET PO SCH (09:00)
[2018-11-17] MEDS: K-LYTE 25 MEQ TABLET.EFF PO SCH ×2 (09:00→20:29)
[2018-11-17] MEDS: morphine SULFATE 10 MG/ML, 1ML IV PRN ×3 (09:17→22:27)
[2018-11-17] MEDS: ONDANSETRON 2MG/ML, 2ML IV PRN ×3 (09:17→22:27)
[2018-11-17] MEDS: MIRTAZAPINE 15 MG TAB.RAPDIS PO SCH (09:18)
[2018-11-17] MEDS: METHADONE 10 MG TABLET PO SCH ×2 (09:18→19:54)
[2018-11-17] MEDS: TAMSULOSIN 0.4 MG CAP.ER.24H PO SCH (09:18)
[2018-11-17] MEDS: APIXABAN 2.5 MG TABLET PO SCH ×2 (09:18→19:54)
[2018-11-17 09:36] VITALS: BP 106/68
[2018-11-17 13:14] VITALS: BP 118/77
[2018-11-17] MEDS: OXYcodone/APAP 7.5/325MG TABLET PO PRN (15:23)
[2018-11-17 20:27] VITALS: BP 119/80
[2018-11-18 02:32] VITALS: BP 118/77
[2018-11-18 07:08] LABS: BASOPHILS # (AUTO) 0.05 x10^3/uL (0-0.1); BASOPHILS % (AUTO) 1 % (0-1); EOSINOPHILS # (AUTO) 0.06 x10^3/uL (0-0.4); EOSINOPHILS % (AUTO) 1 % (1-7); LYMPHOCYTES # (AUTO) 1.45 x10^3/uL (1-3.4); LYMPHOCYTES % (AUTO) 14 % (22-44); MD NO; MEAN CORPUSCULAR HEMOGLOBIN 25.3 pg (27.0-34.8); MEAN CORPUSCULAR HGB CONC 32.8 g/dL (32.4-35.8); MEAN CORPUSCULAR VOLUME 77.3 fL (80-100); MEAN PLATELET VOLUME 8.4 fL (7.4-10.4); MONOCYTES # (AUTO) 0.73 x10^3/uL (0.2-0.8); MONOCYTES % (AUTO) 7 % (2-9); NEUTROPHILS # (AUTO) 8.17 x10^3/uL (1.8-6.8); NEUTROPHILS % (AUTO) 78 % (42-75); PLATELET COUNT 388 x10^3/uL (130-400); RED BLOOD COUNT 4.99 x10^6/uL (3.82-5.3); RED CELL DISTRIBUTION WIDTH 20.3 % (9.6-15.2)
[2018-11-18 07:16] LABS: ANION GAP 7 mmol/L (5-15); CALCIUM 8.1 mg/dL (8.5-10.1); CHLORIDE 97 mmol/L (98-107); CREATININE 0.72 mg/dL (0.55-1.02)
[2018-11-18] MEDS ORDERED: LIDOCAINE-MPF 1%, 5ML ONE (07:34)
[2018-11-18] MEDS: APIXABAN 2.5 MG TABLET PO SCH ×2 (09:00→21:17)
[2018-11-18 09:35] VITALS: BP 104/69
[2018-11-18] MEDS: TAMSULOSIN 0.4 MG CAP.ER.24H PO SCH (09:40)
[2018-11-18] MEDS: METHADONE 10 MG TABLET PO SCH ×2 (09:40→21:17)
[2018-11-18] MEDS: MIRTAZAPINE 15 MG TAB.RAPDIS PO SCH (09:40)
[2018-11-18] MEDS: ONDANSETRON 2MG/ML, 2ML IV PRN ×2 (09:46→23:15)
[2018-11-18 13:58] VITALS: BP 136/87
[2018-11-18 21:18] VITALS: BP 130/87
[2018-11-19 01:10] VITALS: BP 110/70
[2018-11-19 05:11] LABS: ALBUMIN 1.8 g/dL (3.4-5.0); ANION GAP 5 mmol/L (5-15); CALCIUM 8.1 mg/dL (8.5-10.1); CHLORIDE 98 mmol/L (98-107)
[2018-11-19 05:12] LABS: MEAN CORPUSCULAR HEMOGLOBIN 25.4 pg (27.0-34.8); MEAN CORPUSCULAR HGB CONC 32.6 g/dL (32.4-35.8); MEAN PLATELET VOLUME 8.6 fL (7.4-10.4); PLATELET COUNT 373 x10^3/uL (130-400); RED BLOOD COUNT 5.28 x10^6/uL (3.82-5.3); RED CELL DISTRIBUTION WIDTH 20.1 % (9.6-15.2)
[2018-11-19 05:16] LABS: ALANINE AMINOTRANSFERASE 9 U/L (12-78); ALKALINE PHOSPHATASE 72 U/L (45-117); BILIRUBIN,TOTAL 0.3 mg/dL (0.2-1.0); CREATININE 0.68 mg/dL (0.55-1.02)
[2018-11-19 05:43] LABS: BASOPHILS # (AUTO) 0.05 x10^3/uL (0-0.1); BASOPHILS % (AUTO) 1 % (0-1); EOSINOPHILS # (AUTO) 0.13 x10^3/uL (0-0.4); EOSINOPHILS % (AUTO) 1 % (1-7); LYMPHOCYTES # (AUTO) 1.71 x10^3/uL (1-3.4); LYMPHOCYTES % (AUTO) 16 % (22-44); MD SCAN; MONOCYTES # (AUTO) 0.79 x10^3/uL (0.2-0.8); MONOCYTES % (AUTO) 8 % (2-9); NEUTROPHILS # (AUTO) 7.84 x10^3/uL (1.8-6.8); NEUTROPHILS % (AUTO) 75 % (42-75)
[2018-11-19 06:55] VITALS: BP 104/67
[2018-11-19] MEDS: APIXABAN 2.5 MG TABLET PO SCH ×2 (08:32→22:55)
[2018-11-19] MEDS: ONDANSETRON 2MG/ML, 2ML IV PRN ×2 (08:32→20:58)
[2018-11-19] MEDS: MIRTAZAPINE 15 MG TAB.RAPDIS PO SCH (08:32)
[2018-11-19] MEDS: METHADONE 10 MG TABLET PO SCH ×2 (08:33→22:55)
[2018-11-19] MEDS: TAMSULOSIN 0.4 MG CAP.ER.24H PO SCH (08:33)
[2018-11-19] MEDS ORDERED: MAGNESIUM SULFATE PMX 2GM/50ML 50 ML IV ONE (10:00)
[2018-11-19] MEDS: METOCLOPRAMIDE 5 MG/ML, 2ML IVPush SCH ×2 (12:30→18:21)
[2018-11-19 13:40] VITALS: BP 111/72
[2018-11-19 19:53] VITALS: BP 109/71
[2018-11-20] MEDS: METOCLOPRAMIDE 5 MG/ML, 2ML IVPush SCH ×3 (00:30→13:03)
[2018-11-20 02:04] VITALS: BP 115/72
[2018-11-20 04:34] LABS: BASOPHILS # (AUTO) 0.03 x10^3/uL (0-0.1); BASOPHILS % (AUTO) 0 % (0-1); EOSINOPHILS # (AUTO) 0.02 x10^3/uL (0-0.4); EOSINOPHILS % (AUTO) 0 % (1-7); LYMPHOCYTES # (AUTO) 1.79 x10^3/uL (1-3.4); LYMPHOCYTES % (AUTO) 21 % (22-44); MD NO; MEAN CORPUSCULAR HEMOGLOBIN 25.4 pg (27.0-34.8); MEAN CORPUSCULAR HGB CONC 32.6 g/dL (32.4-35.8); MEAN CORPUSCULAR VOLUME 77.9 fL (80-100); MEAN PLATELET VOLUME 8.3 fL (7.4-10.4); MONOCYTES # (AUTO) 0.74 x10^3/uL (0.2-0.8); MONOCYTES % (AUTO) 9 % (2-9); NEUTROPHILS # (AUTO) 6.08 x10^3/uL (1.8-6.8); NEUTROPHILS % (AUTO) 70 % (42-75); PLATELET COUNT 417 x10^3/uL (130-400); RED CELL DISTRIBUTION WIDTH 19.6 % (9.6-15.2)
[2018-11-20 04:47] LABS: ALANINE AMINOTRANSFERASE 9 U/L (12-78); ALBUMIN 1.7 g/dL (3.4-5.0); ANION GAP 4 mmol/L (5-15); CALCIUM 7.6 mg/dL (8.5-10.1); CHLORIDE 97 mmol/L (98-107); CREATININE 0.59 mg/dL (0.55-1.02)
[2018-11-20 04:49] LABS: ALKALINE PHOSPHATASE 66 U/L (45-117); BILIRUBIN,TOTAL 0.3 mg/dL (0.2-1.0); TOTAL PROTEIN 4.7 g/dL (6.4-8.2)
[2018-11-20 06:32] VITALS: BP 113/67
[2018-11-20] MEDS: APIXABAN 2.5 MG TABLET PO SCH ×2 (09:14→19:25)
[2018-11-20] MEDS: MIRTAZAPINE 15 MG TAB.RAPDIS PO SCH (09:14)
[2018-11-20] MEDS: METHADONE 10 MG TABLET PO SCH ×2 (09:14→19:25)
[2018-11-20] MEDS: TAMSULOSIN 0.4 MG CAP.ER.24H PO SCH (09:14)
[2018-11-20 12:08] VITALS: BP 129/79
[2018-11-20] MEDS ORDERED: MAGNESIUM SULFATE PMX 2GM/50ML 50 ML IV ONE (16:30)
[2018-11-20 19:26] VITALS: BP 113/76
[2018-11-20] MEDS: ONDANSETRON 2MG/ML, 2ML IV PRN (19:30)
[2018-11-21 01:18] VITALS: BP 119/80
[2018-11-21 06:00] LABS: BASOPHILS # (AUTO) 0.03 x10^3/uL (0-0.1); BASOPHILS % (AUTO) 0 % (0-1); EOSINOPHILS # (AUTO) 0.05 x10^3/uL (0-0.4); EOSINOPHILS % (AUTO) 1 % (1-7); LYMPHOCYTES # (AUTO) 2.43 x10^3/uL (1-3.4); LYMPHOCYTES % (AUTO) 26 % (22-44); MD NO; MEAN CORPUSCULAR HGB CONC 32.2 g/dL (32.4-35.8); MEAN CORPUSCULAR VOLUME 77.6 fL (80-100); MEAN PLATELET VOLUME 8.6 fL (7.4-10.4); MONOCYTES # (AUTO) 0.97 x10^3/uL (0.2-0.8); MONOCYTES % (AUTO) 10 % (2-9); NEUTROPHILS # (AUTO) 5.95 x10^3/uL (1.8-6.8); NEUTROPHILS % (AUTO) 63 % (42-75); PLATELET COUNT 476 x10^3/uL (130-400); RED BLOOD COUNT 5.02 x10^6/uL (3.82-5.3); RED CELL DISTRIBUTION WIDTH 19.9 % (9.6-15.2)
[2018-11-21 06:04] LABS: ALBUMIN 1.8 g/dL (3.4-5.0); ANION GAP 6 mmol/L (5-15); CALCIUM 8.2 mg/dL (8.5-10.1); CHLORIDE 94 mmol/L (98-107)
[2018-11-21 06:07] LABS: ALANINE AMINOTRANSFERASE 8 U/L (12-78); ALKALINE PHOSPHATASE 78 U/L (45-117); BILIRUBIN,TOTAL 0.2 mg/dL (0.2-1.0); CREATININE 0.65 mg/dL (0.55-1.02)
[2018-11-21 07:17] VITALS: BP 114/74
[2018-11-21] MEDS: METHADONE 10 MG TABLET PO SCH ×2 (07:50→20:34)
[2018-11-21] MEDS: MIRTAZAPINE 15 MG TAB.RAPDIS PO SCH (07:50)
[2018-11-21] MEDS: TAMSULOSIN 0.4 MG CAP.ER.24H PO SCH (07:50)
[2018-11-21] MEDS: APIXABAN 2.5 MG TABLET PO SCH ×2 (07:50→20:34)
[2018-11-21] MEDS: OXYcodone/APAP 7.5/325MG TABLET PO PRN (11:24)
[2018-11-21] MEDS: ONDANSETRON 2MG/ML, 2ML IV PRN (11:24)
[2018-11-21] MEDS ORDERED: OMNIPAQUE 350 MG/ML, 150 ML BOTTLE ONE (12:59)
[2018-11-21 13:50] VITALS: BP 122/83
[2018-11-21 19:37] VITALS: BP 118/77
[2018-11-22 02:21] VITALS: BP 124/74
[2018-11-22 06:11] LABS: BASOPHILS # (AUTO) 0.01 x10^3/uL (0-0.1); BASOPHILS % (AUTO) 0 % (0-1); EOSINOPHILS # (AUTO) 0.06 x10^3/uL (0-0.4); EOSINOPHILS % (AUTO) 1 % (1-7); LYMPHOCYTES # (AUTO) 1.82 x10^3/uL (1-3.4); LYMPHOCYTES % (AUTO) 20 % (22-44); MD NO; MEAN CORPUSCULAR HEMOGLOBIN 25.2 pg (27.0-34.8); MEAN CORPUSCULAR HGB CONC 32.6 g/dL (32.4-35.8); MEAN CORPUSCULAR VOLUME 77.3 fL (80-100); MEAN PLATELET VOLUME 7.9 fL (7.4-10.4); MONOCYTES # (AUTO) 0.85 x10^3/uL (0.2-0.8); MONOCYTES % (AUTO) 9 % (2-9); NEUTROPHILS # (AUTO) 6.26 x10^3/uL (1.8-6.8); NEUTROPHILS % (AUTO) 70 % (42-75); PLATELET COUNT 512 x10^3/uL (130-400); RED BLOOD COUNT 4.91 x10^6/uL (3.82-5.3); RED CELL DISTRIBUTION WIDTH 19.7 % (9.6-15.2)
[2018-11-22 06:19] LABS: ALANINE AMINOTRANSFERASE 9 U/L (12-78); ALBUMIN 1.8 g/dL (3.4-5.0); ANION GAP 6 mmol/L (5-15); CHLORIDE 95 mmol/L (98-107); CREATININE 0.78 mg/dL (0.55-1.02)
[2018-11-22 06:22] LABS: ALKALINE PHOSPHATASE 82 U/L (45-117); BILIRUBIN,TOTAL 0.3 mg/dL (0.2-1.0); TOTAL PROTEIN 4.9 g/dL (6.4-8.2)
[2018-11-22 07:13] VITALS: BP 110/74
[2018-11-22] MEDS: MIRTAZAPINE 15 MG TAB.RAPDIS PO SCH (09:00)
[2018-11-22] MEDS: METHADONE 10 MG TABLET PO SCH ×2 (09:00→20:49)
[2018-11-22] MEDS: APIXABAN 2.5 MG TABLET PO SCH ×2 (09:00→20:49)
[2018-11-22] MEDS: TAMSULOSIN 0.4 MG CAP.ER.24H PO SCH (09:00)
[2018-11-22 13:59] VITALS: BP 111/77
[2018-11-22 20:59] VITALS: BP 113/75
[2018-11-22] MEDS: ONDANSETRON 2MG/ML, 2ML IV PRN (22:33)
[2018-11-23 03:19] VITALS: BP 115/75
[2018-11-23 08:40] VITALS: BP 111/79
[2018-11-23 09:17] VITALS: BP 112/81
[2018-11-23] MEDS: TAMSULOSIN 0.4 MG CAP.ER.24H PO SCH (09:20)
[2018-11-23] MEDS: APIXABAN 2.5 MG TABLET PO SCH ×2 (09:20→19:49)
[2018-11-23] MEDS: METHADONE 10 MG TABLET PO SCH ×2 (09:21→19:49)
[2018-11-23] MEDS: MIRTAZAPINE 15 MG TAB.RAPDIS PO SCH (09:21)
[2018-11-23] MEDS: OXYcodone/APAP 7.5/325MG TABLET PO PRN (12:20)
[2018-11-23] MEDS: METOCLOPRAMIDE 5 MG/ML, 2ML IVPush PRN (12:20)
[2018-11-23 12:21] VITALS: BP 114/72
[2018-11-23 19:43] VITALS: BP 117/81
[2018-11-24 00:32] VITALS: BP 108/72
[2018-11-24] MEDS: OXYcodone/APAP 7.5/325MG TABLET PO PRN (01:00)
[2018-11-24 07:53] VITALS: BP 119/79
[2018-11-24] MEDS: METHADONE 10 MG TABLET PO SCH ×2 (08:47→20:31)
[2018-11-24] MEDS: MIRTAZAPINE 15 MG TAB.RAPDIS PO SCH (08:47)
[2018-11-24] MEDS: TAMSULOSIN 0.4 MG CAP.ER.24H PO SCH (08:47)
[2018-11-24] MEDS: APIXABAN 2.5 MG TABLET PO SCH ×2 (08:47→20:31)
[2018-11-24] MEDS ORDERED: LIDOCAINE-MPF 1%, 5ML ONE (10:18)
[2018-11-24 14:14] VITALS: BP 111/73
[2018-11-24 19:40] VITALS: BP 105/69
[2018-11-25 00:33] VITALS: BP 109/74
[2018-11-25] MEDS: ONDANSETRON 2MG/ML, 2ML IV PRN ×2 (03:23→20:39)
[2018-11-25 07:07] VITALS: BP 103/67
[2018-11-25] MEDS: TAMSULOSIN 0.4 MG CAP.ER.24H PO SCH (08:24)
[2018-11-25] MEDS: MIRTAZAPINE 15 MG TAB.RAPDIS PO SCH (08:24)
[2018-11-25] MEDS: APIXABAN 2.5 MG TABLET PO SCH ×2 (08:24→20:33)
[2018-11-25] MEDS: METHADONE 10 MG TABLET PO SCH ×2 (11:04→20:33)
[2018-11-25] MEDS: OXYcodone/APAP 7.5/325MG TABLET PO PRN (12:32)
[2018-11-25 12:49] VITALS: BP 107/72
[2018-11-25 19:53] VITALS: BP 111/77
[2018-11-26] MEDS: ONDANSETRON 2MG/ML, 2ML IV PRN ×3 (00:14→18:19)
[2018-11-26 00:21] VITALS: BP 104/81
[2018-11-26] MEDS: MIRTAZAPINE 15 MG TAB.RAPDIS PO SCH (08:47)
[2018-11-26] MEDS: TAMSULOSIN 0.4 MG CAP.ER.24H PO SCH (08:47)
[2018-11-26] MEDS: APIXABAN 2.5 MG TABLET PO SCH ×2 (08:47→20:22)
[2018-11-26] MEDS: METHADONE 10 MG TABLET PO SCH ×2 (08:47→20:22)
[2018-11-26 09:29] VITALS: BP 97/75
[2018-11-26 15:30] VITALS: BP 124/76
[2018-11-26 19:24] VITALS: BP 102/68
[2018-11-27] MEDS: ONDANSETRON 2MG/ML, 2ML IV PRN ×2 (00:10→09:20)
[2018-11-27 00:32] VITALS: BP 106/72
[2018-11-27] MEDS: OXYcodone/APAP 7.5/325MG TABLET PO PRN (04:18)
[2018-11-27 07:24] VITALS: BP 90/63
[2018-11-27] MEDS: METHADONE 10 MG TABLET PO SCH ×3 (09:00→20:24)
[2018-11-27] MEDS: MIRTAZAPINE 15 MG TAB.RAPDIS PO SCH ×2 (09:00→09:07)
[2018-11-27] MEDS: TAMSULOSIN 0.4 MG CAP.ER.24H PO SCH ×2 (09:00→09:08)
[2018-11-27] MEDS: APIXABAN 2.5 MG TABLET PO SCH (09:07)
[2018-11-27] MEDS: METOCLOPRAMIDE 5 MG/ML, 2ML IVPush PRN (09:20)
[2018-11-27] MEDS: morphine SULFATE 10 MG/ML, 1ML IV PRN (09:32)
[2018-11-27 13:22] VITALS: BP 97/66
[2018-11-27 19:59] VITALS: BP 97/67
[2018-11-27] MEDS: D5%-0.45% NACL 1,000 ML IV SCH (21:26)
[2018-11-28 01:12] VITALS: BP 101/68
[2018-11-28] MEDS: D5%-0.45% NACL 1,000 ML IV SCH ×2 (03:16→10:59)
[2018-11-28 07:06] VITALS: BP 113/74
[2018-11-28] MEDS: MIRTAZAPINE 15 MG TAB.RAPDIS PO SCH (10:55)
[2018-11-28] MEDS: TAMSULOSIN 0.4 MG CAP.ER.24H PO SCH (10:55)
[2018-11-28] MEDS: METHADONE 10 MG TABLET PO SCH ×2 (10:55→21:05)
[2018-11-28 11:57] LABS: ALANINE AMINOTRANSFERASE 8 U/L (12-78); ALBUMIN 1.6 g/dL (3.4-5.0); ANION GAP 3 mmol/L (5-15); CALCIUM 7.6 mg/dL (8.5-10.1); CHLORIDE 91 mmol/L (98-107); CREATININE 0.79 mg/dL (0.55-1.02); TRIGLYCERIDES 165 mg/dL (50-200)
[2018-11-28 12:03] LABS: ALKALINE PHOSPHATASE 104 U/L (45-117); BILIRUBIN,TOTAL 0.3 mg/dL (0.2-1.0); PREALBUMIN 6.5 mg/dL (20.0-40.0)
[2018-11-28] MEDS ORDERED: D5%-0.45% NACL 1,000 ML IV SCH (13:00)
[2018-11-28 13:30] VITALS: BP 119/81
[2018-11-28] MEDS: D5%-0.9% NACL 1,000 ML IV SCH (15:34)
[2018-11-28] MEDS ORDERED: [UNRECOGNIZED DRUG - OTHER] IV SCH (17:00)
[2018-11-28] MEDS ORDERED: SMOF TPN IV SCH (17:00)
[2018-11-28] MEDS ORDERED: FILTER, DISP 1.2 MICRON FOR TPN/PVN IV PRN (17:00)
[2018-11-28] MEDS ORDERED: DEXTROSE 50%, 50ML SYRINGE IVPush PRN (17:00)
[2018-11-28] MEDS ORDERED: DEXTROSE 70% IV SCH (17:00)
[2018-11-28] MEDS ORDERED: DEXTROSE 10% 500 ML IV PRN (17:00)
[2018-11-28] MEDS ORDERED: AMINO ACID 10% IV SCH (17:00)
[2018-11-28] MEDS ORDERED: TPN PER PHARMACY MC PRN (17:00)
[2018-11-28] MEDS ORDERED: FAT EMUL IV SCH (17:00)
[2018-11-28 20:08] VITALS: BP 100/70
[2018-11-28] MEDS: INSULIN REGULAR LOW DOSE Q6H X 48HRS SQ-INSULIN SCH (21:04)
[2018-11-29 01:41] VITALS: BP 101/71
[2018-11-29] MEDS: D5%-0.9% NACL 1,000 ML IV SCH ×2 (02:02→15:20)
[2018-11-29] MEDS: INSULIN REGULAR LOW DOSE Q6H X 48HRS SQ-INSULIN SCH ×4 (02:08→21:00)
[2018-11-29 04:50] LABS: ANION GAP 6 mmol/L (5-15); CALCIUM 7.2 mg/dL (8.5-10.1); CHLORIDE 94 mmol/L (98-107); CREATININE 0.69 mg/dL (0.55-1.02)
[2018-11-29 08:28] VITALS: BP 103/70
[2018-11-29] MEDS: APIXABAN 2.5 MG TABLET PO SCH (10:19)
[2018-11-29] MEDS: MIRTAZAPINE 15 MG TAB.RAPDIS PO SCH (10:49)
[2018-11-29] MEDS: TAMSULOSIN 0.4 MG CAP.ER.24H PO SCH (10:49)
[2018-11-29] MEDS: METHADONE 10 MG TABLET PO SCH ×2 (10:49→21:52)
[2018-11-29 12:55] VITALS: BP 106/67
[2018-11-29] MEDS ORDERED: FAT EMUL IV SCH ×2 (17:00)
[2018-11-29] MEDS ORDERED: SMOF TPN IV SCH ×2 (17:00)
[2018-11-29] MEDS ORDERED: [UNRECOGNIZED DRUG - OTHER] IV SCH (17:00)
[2018-11-29] MEDS ORDERED: DEXTROSE 70% IV SCH ×2 (17:00)
[2018-11-29] MEDS ORDERED: [UNRECOGNIZED DRUG - OTHER] IV SCH (17:00)
[2018-11-29] MEDS ORDERED: AMINO ACID 10% IV SCH ×2 (17:00)
[2018-11-29 20:40] VITALS: BP 104/66
[2018-11-30] MEDS: INSULIN REGULAR LOW DOSE Q6H X 48HRS SQ-INSULIN SCH ×2 (02:52→09:05)
[2018-11-30 02:58] VITALS: BP 105/74
[2018-11-30 06:11] LABS: CHLORIDE 100 mmol/L (98-107)
[2018-11-30 06:24] LABS: ANION GAP 8 mmol/L (5-15); CALCIUM 7.6 mg/dL (8.5-10.1)
[2018-11-30] MEDS ORDERED: FENTANYL PF 100 MCG/2ML ONE (07:36)
[2018-11-30] MEDS ORDERED: KETOROLAC 30 MG/1 ML IV PRN (08:00)
[2018-11-30] MEDS ORDERED: HYDROmorphone 2 MG/ML, 1ML IVPush PRN (08:00)
[2018-11-30] MEDS ORDERED: LORazepam 2 MG/ML, 1ML IVPush PRN (08:00)
[2018-11-30] MEDS ORDERED: FENTANYL PF 100 MCG/2ML IV PRN (08:00)
[2018-11-30] MEDS ORDERED: MEPERIDINE/PF 25MG/0.5ML IVPush PRN (08:00)
[2018-11-30 09:00] VITALS: BP 90/63
[2018-11-30] MEDS: MIRTAZAPINE 15 MG TAB.RAPDIS PO SCH (09:05)
[2018-11-30] MEDS: TAMSULOSIN 0.4 MG CAP.ER.24H PO SCH (09:05)
[2018-11-30] MEDS: METHADONE 10 MG TABLET PO SCH ×2 (09:05→21:02)
[2018-11-30] MEDS ORDERED: LIDOCAINE-MPF 1%, 5ML ONE (10:34)
[2018-11-30 13:00] VITALS: BP 102/69
[2018-11-30] MEDS: FILTER, DISP 1.2 MICRON FOR TPN/PVN IV PRN (16:41)
[2018-11-30] MEDS: D5%-0.9% NACL 1,000 ML IV SCH (16:42)
[2018-11-30] MEDS ORDERED: SMOF TPN IV SCH (17:00)
[2018-11-30] MEDS ORDERED: AMINO ACID 10% IV SCH (17:00)
[2018-11-30] MEDS ORDERED: FAT EMUL IV SCH (17:00)
[2018-11-30] MEDS ORDERED: DEXTROSE 70% IV SCH (17:00)
[2018-11-30] MEDS ORDERED: [UNRECOGNIZED DRUG - OTHER] IV SCH (17:00)
[2018-11-30 19:59] VITALS: BP 91/63
[2018-12-01 02:48] VITALS: BP 96/61
[2018-12-01] MEDS: ONDANSETRON 2MG/ML, 2ML IV PRN (04:29)
[2018-12-01 05:09] LABS: ANION GAP 5 mmol/L (5-15); CALCIUM 7.4 mg/dL (8.5-10.1); CHLORIDE 100 mmol/L (98-107); CREATININE 0.49 mg/dL (0.55-1.02)
[2018-12-01] MEDS: INSULIN REGULAR LOW DOSE QDAY SQ-INSULIN SCH (07:30)
[2018-12-01 08:23] VITALS: BP 98/64
[2018-12-01] MEDS: TAMSULOSIN 0.4 MG CAP.ER.24H PO SCH (08:44)
[2018-12-01] MEDS: MIRTAZAPINE 15 MG TAB.RAPDIS PO SCH (08:44)
[2018-12-01] MEDS: METHADONE 10 MG TABLET PO SCH ×2 (08:44→20:30)
[2018-12-01 13:00] VITALS: BP 95/64
[2018-12-01] MEDS ORDERED: DIPHENHYDRAMINE 50 MG/ML, 1ML IVPush PRN (14:30)
[2018-12-01] MEDS: D5%-0.9% NACL 1,000 ML IV SCH (16:26)
[2018-12-01] MEDS: FILTER, DISP 1.2 MICRON FOR TPN/PVN IV PRN (16:27)
[2018-12-01] MEDS ORDERED: [UNRECOGNIZED DRUG - OTHER] IV SCH ×2 (17:00)
[2018-12-01] MEDS ORDERED: SMOF TPN IV SCH ×2 (17:00)
[2018-12-01] MEDS ORDERED: FAT EMUL IV SCH ×2 (17:00)
[2018-12-01] MEDS ORDERED: AMINO ACID 10% IV SCH ×2 (17:00)
[2018-12-01] MEDS ORDERED: DEXTROSE 70% IV SCH ×2 (17:00)
[2018-12-01 19:45] VITALS: BP 95/62
[2018-12-02] VITALS: BP 90/59
[2018-12-02 07:06] VITALS: BP 94/61
[2018-12-02] MEDS: INSULIN REGULAR LOW DOSE QDAY SQ-INSULIN SCH (07:20)
[2018-12-02] MEDS: METHADONE 10 MG TABLET PO SCH ×2 (07:38→22:41)
[2018-12-02] MEDS: MIRTAZAPINE 15 MG TAB.RAPDIS PO SCH (07:38)
[2018-12-02] MEDS: TAMSULOSIN 0.4 MG CAP.ER.24H PO SCH (07:39)
[2018-12-02 15:08] VITALS: BP 93/61
[2018-12-02] MEDS ORDERED: CATHFLO-ALTEPLASE 2 MG/2 ML CATHFLUSH ONE ×2 (17:00→20:00)
[2018-12-02] MEDS ORDERED: DEXTROSE 70% IV SCH (17:00)
[2018-12-02] MEDS ORDERED: SMOF TPN IV SCH (17:00)
[2018-12-02] MEDS ORDERED: [UNRECOGNIZED DRUG - OTHER] IV SCH (17:00)
[2018-12-02] MEDS ORDERED: FILTER, DISP 1.2 MICRON FOR TPN/PVN IV PRN (17:00)
[2018-12-02] MEDS ORDERED: AMINO ACID 10% IV SCH (17:00)
[2018-12-02] MEDS ORDERED: FAT EMUL IV SCH (17:00)
[2018-12-02 18:35] VITALS: BP 95/61
[2018-12-02] MEDS: D5%-0.9% NACL 1,000 ML IV SCH (23:07)
[2018-12-03 00:08] VITALS: BP 98/61
[2018-12-03 05:35] LABS: INTERNATIONAL NORMALIZED RATIO 1.06 (0.93-1.1); PROTHROMBIN TIME 11.2 Seconds (9.6-11.5)
[2018-12-03 05:41] LABS: CHLORIDE 102 mmol/L (98-107)
[2018-12-03 05:45] LABS: ANION GAP 7 mmol/L (5-15); CALCIUM 7.5 mg/dL (8.5-10.1); CREATININE 0.39 mg/dL (0.55-1.02)
[2018-12-03] MEDS: INSULIN REGULAR LOW DOSE QDAY SQ-INSULIN SCH (07:45)
[2018-12-03 07:53] VITALS: BP 120/98
[2018-12-03] MEDS: METHADONE 10 MG TABLET PO SCH ×2 (09:09→20:26)
[2018-12-03] MEDS: MIRTAZAPINE 15 MG TAB.RAPDIS PO SCH (09:09)
[2018-12-03] MEDS: TAMSULOSIN 0.4 MG CAP.ER.24H PO SCH (09:09)
[2018-12-03 14:10] VITALS: BP 100/58
[2018-12-03] MEDS ORDERED: CEFAZOLIN 1,000 MG ONE (14:24)
[2018-12-03] MEDS: CEFEPIME 2 GM in DEXTROSE 5% 100 ML IV SCH (16:17)
[2018-12-03] MEDS ORDERED: AMINO ACID 10% IV SCH (17:00)
[2018-12-03] MEDS ORDERED: DEXTROSE 70% IV SCH (17:00)
[2018-12-03] MEDS ORDERED: SMOF TPN IV SCH (17:00)
[2018-12-03] MEDS ORDERED: [UNRECOGNIZED DRUG - OTHER] IV SCH (17:00)
[2018-12-03] MEDS ORDERED: FAT EMUL IV SCH (17:00)
[2018-12-03] MEDS: FILTER, DISP 1.2 MICRON FOR TPN/PVN IV PRN (17:38)
[2018-12-03] MEDS: D5%-0.9% NACL 1,000 ML IV SCH (17:39)
[2018-12-03 19:45] VITALS: BP 94/60
[2018-12-03] MEDS: morphine SULFATE 10 MG/ML, 1ML IV PRN (21:55)
[2018-12-04 00:50] VITALS: BP 108/73
[2018-12-04] MEDS: ONDANSETRON 2MG/ML, 2ML IV PRN ×2 (01:12→08:32)
[2018-12-04] MEDS: CEFEPIME 2 GM in DEXTROSE 5% 100 ML IV SCH ×2 (04:50→16:58)
[2018-12-04] MEDS: morphine SULFATE 10 MG/ML, 1ML IV PRN ×2 (05:16→21:40)
[2018-12-04 05:30] LABS: MEAN CORPUSCULAR HEMOGLOBIN 24.8 pg (27.0-34.8); MEAN CORPUSCULAR HGB CONC 31.9 g/dL (32.4-35.8); MEAN CORPUSCULAR VOLUME 77.8 fL (80-100); MEAN PLATELET VOLUME 8.6 fL (7.4-10.4); PLATELET COUNT 324 x10^3/uL (130-400); RED BLOOD COUNT 4.51 x10^6/uL (3.82-5.3); RED CELL DISTRIBUTION WIDTH 20.1 % (9.6-15.2)
[2018-12-04 05:39] LABS: ALBUMIN 1.3 g/dL (3.4-5.0); ANION GAP 6 mmol/L (5-15); CALCIUM 7.8 mg/dL (8.5-10.1); CHLORIDE 105 mmol/L (98-107)
[2018-12-04 05:46] LABS: ALANINE AMINOTRANSFERASE 7 U/L (12-78); ALKALINE PHOSPHATASE 123 U/L (45-117); BILIRUBIN,TOTAL 0.2 mg/dL (0.2-1.0); CREATININE 0.46 mg/dL (0.55-1.02); PREALBUMIN 5.6 mg/dL (20.0-40.0); TOTAL PROTEIN 4.7 g/dL (6.4-8.2); TRIGLYCERIDES 141 mg/dL (50-200)
[2018-12-04 05:59] LABS: BASOPHILS # (AUTO) 0.17 x10^3/uL (0-0.1); BASOPHILS % (AUTO) 1 % (0-1); EOSINOPHILS # (AUTO) 0.04 x10^3/uL (0-0.4); EOSINOPHILS % (AUTO) 0 % (1-7); LYMPHOCYTES # (AUTO) 1.48 x10^3/uL (1-3.4); LYMPHOCYTES % (AUTO) 10 % (22-44); MD SCAN; MONOCYTES # (AUTO) 1.19 x10^3/uL (0.2-0.8); MONOCYTES % (AUTO) 8 % (2-9); NEUTROPHILS # (AUTO) 11.64 x10^3/uL (1.8-6.8); NEUTROPHILS % (AUTO) 80 % (42-75)
[2018-12-04] MEDS ORDERED: ALBUMIN HUMAN 25% 100 ML IV ONE (08:00)
[2018-12-04] MEDS: TAMSULOSIN 0.4 MG CAP.ER.24H PO SCH (08:21)
[2018-12-04] MEDS: METHADONE 10 MG TABLET PO SCH ×2 (08:21→20:16)
[2018-12-04] MEDS: MIRTAZAPINE 15 MG TAB.RAPDIS PO SCH (08:21)
[2018-12-04] MEDS: INSULIN REGULAR LOW DOSE QDAY SQ-INSULIN SCH (08:22)
[2018-12-04] MEDS ORDERED: LIDOCAINE-MPF 1%, 5ML ONE (08:56)
[2018-12-04 08:58] VITALS: BP 106/68
[2018-12-04 12:59] VITALS: BP 101/57
[2018-12-04] MEDS ORDERED: SMOF TPN IV SCH (17:00)
[2018-12-04] MEDS ORDERED: AMINO ACID 10% IV SCH (17:00)
[2018-12-04] MEDS ORDERED: DEXTROSE 70% IV SCH (17:00)
[2018-12-04] MEDS ORDERED: [UNRECOGNIZED DRUG - OTHER] IV SCH (17:00)
[2018-12-04] MEDS ORDERED: FAT EMUL IV SCH (17:00)
[2018-12-04] MEDS ORDERED: CATHFLO-ALTEPLASE 2 MG/2 ML CATHFLUSH ONE ×2 (17:30)
[2018-12-04 19:32] VITALS: BP 91/57
[2018-12-04] MEDS: FILTER, DISP 1.2 MICRON FOR TPN/PVN IV PRN (20:16)
[2018-12-04] MEDS: D5%-0.9% NACL 1,000 ML IV SCH (20:19)
[2018-12-05 00:48] VITALS: BP 89/59
[2018-12-05] MEDS: morphine SULFATE 10 MG/ML, 1ML IV PRN (01:06)
[2018-12-05 04:03] VITALS: BP 115/71
[2018-12-05] MEDS: CEFEPIME 2 GM in DEXTROSE 5% 100 ML IV SCH ×2 (04:09→16:09)
[2018-12-05 04:58] LABS: ANION GAP 4 mmol/L (5-15); CHLORIDE 107 mmol/L (98-107)
[2018-12-05 05:00] LABS: CREATININE 0.35 mg/dL (0.55-1.02)
[2018-12-05 06:51] VITALS: BP 137/82
[2018-12-05] MEDS: MORPHINE SULFATE 4 MG/ML, 1ML IVPush PRN ×3 (08:30→16:08)
[2018-12-05] MEDS: MIRTAZAPINE 15 MG TAB.RAPDIS PO SCH (08:30)
[2018-12-05] MEDS: METHADONE 10 MG TABLET PO SCH ×2 (08:30→21:00)
[2018-12-05] MEDS: TAMSULOSIN 0.4 MG CAP.ER.24H PO SCH ×2 (08:30→08:35)
[2018-12-05 08:55] LABS: MEAN CORPUSCULAR HEMOGLOBIN 25.1 pg (27.0-34.8); MEAN CORPUSCULAR HGB CONC 32.1 g/dL (32.4-35.8); MEAN PLATELET VOLUME 8.4 fL (7.4-10.4); PLATELET COUNT 312 x10^3/uL (130-400); RED BLOOD COUNT 4.58 x10^6/uL (3.82-5.3); RED CELL DISTRIBUTION WIDTH 20.1 % (9.6-15.2)
[2018-12-05] MEDS: INSULIN REGULAR LOW DOSE QDAY SQ-INSULIN SCH (09:00)
[2018-12-05 09:17] LABS: BASOPHILS # (AUTO) 0.03 x10^3/uL (0-0.1); BASOPHILS % (AUTO) 0 % (0-1); EOSINOPHILS # (AUTO) 0.21 x10^3/uL (0-0.4); EOSINOPHILS % (AUTO) 2 % (1-7); LYMPHOCYTES # (AUTO) 1.29 x10^3/uL (1-3.4); LYMPHOCYTES % (AUTO) 12 % (22-44); MD SCAN; MONOCYTES # (AUTO) 0.96 x10^3/uL (0.2-0.8); MONOCYTES % (AUTO) 9 % (2-9); NEUTROPHILS # (AUTO) 8.33 x10^3/uL (1.8-6.8); NEUTROPHILS % (AUTO) 77 % (42-75)
[2018-12-05] MEDS ORDERED: VISIPAQUE 270 MG/ML, 50ML BOTTLE ONE (12:41)
[2018-12-05 14:00] VITALS: BP 115/81
[2018-12-05] MEDS ORDERED: AMINO ACID 10% IV SCH ×3 (17:00→21:00)
[2018-12-05] MEDS ORDERED: [UNRECOGNIZED DRUG - OTHER] IV SCH ×3 (17:00→21:00)
[2018-12-05] MEDS ORDERED: SMOF TPN IV SCH ×3 (17:00→21:00)
[2018-12-05] MEDS ORDERED: DEXTROSE 70% IV SCH ×3 (17:00→21:00)
[2018-12-05] MEDS ORDERED: FAT EMUL IV SCH ×3 (17:00→21:00)
[2018-12-05] MEDS: FILTER, DISP 1.2 MICRON FOR TPN/PVN IV PRN (17:22)
[2018-12-05 20:31] VITALS: BP 94/59
[2018-12-06 01:18] VITALS: BP 99/63
[2018-12-06] MEDS: CEFEPIME 2 GM in DEXTROSE 5% 100 ML IV SCH ×2 (04:16→18:27)
[2018-12-06 04:48] LABS: ANION GAP 9 mmol/L (5-15); CALCIUM 7.8 mg/dL (8.5-10.1); CHLORIDE 108 mmol/L (98-107)
[2018-12-06 04:51] LABS: CREATININE 0.36 mg/dL (0.55-1.02)
[2018-12-06 07:51] VITALS: BP 102/70
[2018-12-06] MEDS: ONDANSETRON 2MG/ML, 2ML IV PRN (08:02)
[2018-12-06] MEDS: INSULIN REGULAR LOW DOSE QDAY SQ-INSULIN SCH (09:00)
[2018-12-06] MEDS: MIRTAZAPINE 15 MG TAB.RAPDIS PO SCH (09:47)
[2018-12-06] MEDS: TAMSULOSIN 0.4 MG CAP.ER.24H PO SCH (09:47)
[2018-12-06] MEDS: MORPHINE SULFATE 4 MG/ML, 1ML IVPush PRN (09:47)
[2018-12-06] MEDS: METHADONE 10 MG TABLET PO SCH ×2 (09:47→21:24)
[2018-12-06] MEDS: METOCLOPRAMIDE 5 MG/ML, 2ML IVPush PRN (09:48)
[2018-12-06 12:30] VITALS: BP 100/64
[2018-12-06] MEDS ORDERED: DIPHENHYDRAMINE 50 MG/ML, 1ML IVPush ONE (15:30)
[2018-12-06] MEDS ORDERED: PROMETHAZINE 25 MG/ML, 1ML IM PRN (15:30)
[2018-12-06] MEDS ORDERED: ONDANSETRON 16 MG, DEXAMETHASONE 20 MG in SODIUM CHLORIDE 0.9% 50 ML IVPB ONE (15:30)
[2018-12-06] MEDS ORDERED: SODIUM CHLORIDE 0.9% IV ONE ×2 (16:00→16:30)
[2018-12-06] MEDS ORDERED: GEMCITABINE HCL IV ONE (16:00)
[2018-12-06] MEDS ORDERED: CARBOPLATIN IV ONE (16:30)
[2018-12-06] MEDS: morphine SULFATE 10 MG/ML, 1ML IV PRN (19:02)
[2018-12-06 20:48] VITALS: BP 103/69
[2018-12-06] MEDS ORDERED: [UNRECOGNIZED DRUG - OTHER] IV SCH (21:00)
[2018-12-06] MEDS ORDERED: AMINO ACID 10% IV SCH (21:00)
[2018-12-06] MEDS ORDERED: SMOF TPN IV SCH (21:00)
[2018-12-06] MEDS ORDERED: FAT EMUL IV SCH (21:00)
[2018-12-06] MEDS ORDERED: DEXTROSE 70% IV SCH (21:00)
[2018-12-06] MEDS: FILTER, DISP 1.2 MICRON FOR TPN/PVN IV PRN (21:23)
[2018-12-06] MEDS: APIXABAN 2.5 MG TABLET PO SCH (21:24)
[2018-12-07 01:22] VITALS: BP 103/69
[2018-12-07] MEDS: morphine SULFATE 10 MG/ML, 1ML IV PRN ×6 (04:26→21:40)
[2018-12-07 05:11] LABS: CHLORIDE 108 mmol/L (98-107)
[2018-12-07 05:23] LABS: ANION GAP 9 mmol/L (5-15); CALCIUM 7.9 mg/dL (8.5-10.1); CREATININE 0.41 mg/dL (0.55-1.02); PREALBUMIN 6.6 mg/dL (20.0-40.0)
[2018-12-07] MEDS: CEFEPIME 2 GM in DEXTROSE 5% 100 ML IV SCH ×2 (06:12→17:15)
[2018-12-07] MEDS: INSULIN REGULAR LOW DOSE QDAY SQ-INSULIN SCH (07:40)
[2018-12-07 09:12] VITALS: BP 113/69
[2018-12-07] MEDS: METHADONE 10 MG TABLET PO SCH ×2 (10:28→22:55)
[2018-12-07] MEDS: APIXABAN 2.5 MG TABLET PO SCH ×2 (10:28→21:23)
[2018-12-07] MEDS: MIRTAZAPINE 15 MG TAB.RAPDIS PO SCH (10:28)
[2018-12-07] MEDS: TAMSULOSIN 0.4 MG CAP.ER.24H PO SCH (10:28)
[2018-12-07 13:00] VITALS: BP 112/71
[2018-12-07 19:51] VITALS: BP 117/72
[2018-12-07] MEDS ORDERED: DEXTROSE 70% IV SCH (21:00)
[2018-12-07] MEDS ORDERED: FAT EMUL IV SCH (21:00)
[2018-12-07] MEDS ORDERED: [UNRECOGNIZED DRUG - OTHER] IV SCH (21:00)
[2018-12-07] MEDS ORDERED: AMINO ACID 10% IV SCH (21:00)
[2018-12-07] MEDS ORDERED: SMOF TPN IV SCH (21:00)
[2018-12-07] MEDS: CYCLOBENZAPRINE 10 MG TABLET PO PRN (21:23)
[2018-12-07] MEDS: FILTER, DISP 1.2 MICRON FOR TPN/PVN IV PRN (21:24)
[2018-12-08 01:23] VITALS: BP 127/81
[2018-12-08] MEDS: morphine SULFATE 10 MG/ML, 1ML IV PRN ×6 (01:36→20:17)
[2018-12-08] MEDS: OXYcodone/APAP 7.5/325MG TABLET PO PRN (02:20)
[2018-12-08] MEDS: CYCLOBENZAPRINE 10 MG TABLET PO PRN ×3 (04:02→17:08)
[2018-12-08 05:07] LABS: ANION GAP 8 mmol/L (5-15); CALCIUM 8.3 mg/dL (8.5-10.1); CHLORIDE 110 mmol/L (98-107)
[2018-12-08 05:12] LABS: CREATININE 0.54 mg/dL (0.55-1.02); PREALBUMIN 9.9 mg/dL (20.0-40.0)
[2018-12-08] MEDS: CEFEPIME 2 GM in DEXTROSE 5% 100 ML IV SCH ×2 (06:00→17:56)
[2018-12-08] MEDS: D5%-0.9% NACL 1,000 ML IV SCH (06:00)
[2018-12-08] MEDS: ONDANSETRON 2MG/ML, 2ML IV PRN (07:21)
[2018-12-08] MEDS: APIXABAN 2.5 MG TABLET PO SCH ×2 (07:55→20:20)
[2018-12-08] MEDS: METHADONE 10 MG TABLET PO SCH (07:55)
[2018-12-08] MEDS: MIRTAZAPINE 15 MG TAB.RAPDIS PO SCH (07:55)
[2018-12-08] MEDS: TAMSULOSIN 0.4 MG CAP.ER.24H PO SCH (07:56)
[2018-12-08 08:23] VITALS: BP 153/83
[2018-12-08] MEDS: INSULIN REGULAR LOW DOSE QDAY SQ-INSULIN SCH (08:28)
[2018-12-08] MEDS ORDERED: SODIUM CHLORIDE 0.9% 1,000 ML IV ONE (11:00)
[2018-12-08 11:55] LABS: MICROSCOPIC INDICATED
[2018-12-08] MEDS: FILTER, DISP 1.2 MICRON FOR TPN/PVN IV PRN ×2 (12:10→20:55)
[2018-12-08 14:15] VITALS: BP 108/74
[2018-12-08] MEDS ORDERED: FENTANYL 25 MCG PATCH TD SCH (15:00)
[2018-12-08] MEDS ORDERED: LIDOCAINE-MPF 1%, 5ML ONE ×2 (15:50→16:10)
[2018-12-08] MEDS: SODIUM CHLORIDE 0.9% 1,000 ML IV SCH (17:40)
[2018-12-08 18:01] VITALS: BP 111/72
[2018-12-08 19:22] VITALS: BP 99/58
[2018-12-08] MEDS ORDERED: MORPHINE SULFATE 4 MG/ML, 1ML ONE (20:14)
[2018-12-08] MEDS ORDERED: DEXTROSE 70% IV SCH ×2 (21:00)
[2018-12-08] MEDS ORDERED: FAT EMUL IV SCH ×2 (21:00)
[2018-12-08] MEDS ORDERED: SMOF TPN IV SCH ×2 (21:00)
[2018-12-08] MEDS ORDERED: [UNRECOGNIZED DRUG - OTHER] IV SCH (21:00)
[2018-12-08] MEDS ORDERED: [UNRECOGNIZED DRUG - OTHER] IV SCH (21:00)
[2018-12-08] MEDS ORDERED: AMINO ACID 10% IV SCH ×2 (21:00)
[2018-12-08] MEDS: ZOLPIDEM 5MG TABLET PO PRN (21:06)
[2018-12-09 01:54] VITALS: BP 123/81
[2018-12-09] MEDS: morphine SULFATE 10 MG/ML, 1ML IV PRN ×3 (02:14→10:56)
[2018-12-09] MEDS: SODIUM CHLORIDE 0.9% 1,000 ML IV SCH ×3 (03:00→23:00)
[2018-12-09] MEDS: CEFEPIME 2 GM in DEXTROSE 5% 100 ML IV SCH ×2 (05:55→18:08)
[2018-12-09 07:26] VITALS: BP 105/69
[2018-12-09] MEDS: INSULIN REGULAR LOW DOSE QDAY SQ-INSULIN SCH (08:05)
[2018-12-09] MEDS: APIXABAN 2.5 MG TABLET PO SCH ×2 (08:23→21:32)
[2018-12-09] MEDS: MIRTAZAPINE 15 MG TAB.RAPDIS PO SCH (08:23)
[2018-12-09] MEDS: TAMSULOSIN 0.4 MG CAP.ER.24H PO SCH (08:23)
[2018-12-09] MEDS: CYCLOBENZAPRINE 10 MG TABLET PO PRN (10:57)
[2018-12-09] MEDS: LORazepam 2 MG/ML, 1ML IVPush PRN (14:23)
[2018-12-09 14:40] VITALS: BP 95/64
[2018-12-09 19:32] VITALS: BP 109/75
[2018-12-09] MEDS ORDERED: SMOF TPN IV SCH (21:00)
[2018-12-09] MEDS ORDERED: [UNRECOGNIZED DRUG - OTHER] IV SCH (21:00)
[2018-12-09] MEDS ORDERED: DEXTROSE 70% IV SCH (21:00)
[2018-12-09] MEDS ORDERED: FAT EMUL IV SCH (21:00)
[2018-12-09] MEDS ORDERED: AMINO ACID 10% IV SCH (21:00)
[2018-12-09] MEDS: FILTER, DISP 1.2 MICRON FOR TPN/PVN IV PRN (21:33)
[2018-12-10 01:40] VITALS: BP 111/77
[2018-12-10] MEDS: ONDANSETRON 2MG/ML, 2ML IV PRN ×4 (04:45→20:20)
[2018-12-10] MEDS: morphine SULFATE 10 MG/ML, 1ML IV PRN ×6 (04:46→23:59)
[2018-12-10] MEDS: CEFEPIME 2 GM in DEXTROSE 5% 100 ML IV SCH ×2 (06:31→17:36)
[2018-12-10 07:25] VITALS: BP 103/67
[2018-12-10] MEDS: TAMSULOSIN 0.4 MG CAP.ER.24H PO SCH (08:19)
[2018-12-10] MEDS: MIRTAZAPINE 15 MG TAB.RAPDIS PO SCH (08:19)
[2018-12-10] MEDS: APIXABAN 2.5 MG TABLET PO SCH ×3 (08:19→20:29)
[2018-12-10] MEDS: SODIUM CHLORIDE 0.9% 1,000 ML IV SCH ×3 (08:20→20:20)
[2018-12-10] MEDS: INSULIN REGULAR LOW DOSE QDAY SQ-INSULIN SCH (08:28)
[2018-12-10] MEDS ORDERED: FENTANYL 50 MCG PATCH TD SCH (12:00)
[2018-12-10 13:25] VITALS: BP 124/85
[2018-12-10 19:51] VITALS: BP 136/82
[2018-12-10] MEDS: LORazepam 2 MG/ML, 1ML IVPush PRN (20:19)
[2018-12-10] MEDS ORDERED: [UNRECOGNIZED DRUG - OTHER] IV SCH (21:00)
[2018-12-10] MEDS ORDERED: AMINO ACID 10% IV SCH (21:00)
[2018-12-10] MEDS ORDERED: DEXTROSE 70% IV SCH (21:00)
[2018-12-10] MEDS ORDERED: FAT EMUL IV SCH (21:00)
[2018-12-10] MEDS ORDERED: SMOF TPN IV SCH (21:00)
[2018-12-10] MEDS: FILTER, DISP 1.2 MICRON FOR TPN/PVN IV PRN (22:08)
[2018-12-11 00:46] VITALS: BP 108/71
[2018-12-11] MEDS: morphine SULFATE 10 MG/ML, 1ML IV PRN ×3 (03:11→09:51)
[2018-12-11] MEDS: LORazepam 2 MG/ML, 1ML IVPush PRN (05:07)
[2018-12-11 05:47] LABS: CHLORIDE 115 mmol/L (98-107)
[2018-12-11 06:00] LABS: ALANINE AMINOTRANSFERASE 9 U/L (12-78); ALBUMIN 1.5 g/dL (3.4-5.0); ALKALINE PHOSPHATASE 117 U/L (45-117); ANION GAP 10 mmol/L (5-15); BILIRUBIN,TOTAL 0.4 mg/dL (0.2-1.0); CALCIUM 8.5 mg/dL (8.5-10.1); CREATININE 0.78 mg/dL (0.55-1.02); PREALBUMIN 13.1 mg/dL (20.0-40.0); TOTAL PROTEIN 5.1 g/dL (6.4-8.2); TRIGLYCERIDES 146 mg/dL (50-200)
[2018-12-11] MEDS: CEFEPIME 2 GM in DEXTROSE 5% 100 ML IV SCH (06:22)
[2018-12-11 06:57] VITALS: BP 122/80
[2018-12-11] MEDS: INSULIN REGULAR LOW DOSE QDAY SQ-INSULIN SCH (08:13)
[2018-12-11] MEDS: TAMSULOSIN 0.4 MG CAP.ER.24H PO SCH (08:41)
[2018-12-11] MEDS: MIRTAZAPINE 15 MG TAB.RAPDIS PO SCH (08:41)
[2018-12-11] MEDS: APIXABAN 2.5 MG TABLET PO SCH (08:41)
[2018-12-11] MEDS: ONDANSETRON 2MG/ML, 2ML IV PRN (08:41)
[2018-12-11] MEDS ORDERED: morphine SULFATE 10 MG/ML, 1ML IVPush PRN (11:30)
[2018-12-11] MEDS ORDERED: LORazepam 2 MG/ML, 1ML IVPush PRN (11:30)
[2018-12-11 12:25] VITALS: BP 116/83
[2018-12-11] MEDS ORDERED: [UNRECOGNIZED DRUG - OTHER] IV SCH (21:00)
[2018-12-11] MEDS ORDERED: SMOF TPN IV SCH (21:00)
[2018-12-11] MEDS ORDERED: AMINO ACID 10% IV SCH (21:00)
[2018-12-11] MEDS ORDERED: DEXTROSE 70% IV SCH (21:00)
[2018-12-11] MEDS ORDERED: FAT EMUL IV SCH (21:00)
== END 2018-12-11 13:47 | disposition home health service (06) | DRG 374 ==
LOC: 3NW 15:45
PROVIDERS: ADMIT Internal Medicine; ATTEND Internal Medicine
PROC: 0W9G3ZZ Drainage of Peritoneal Cavity, Percutaneous Approach (ICD-10-PCS; 2018-11-15)
PROC: 0W9G3ZZ Drainage of Peritoneal Cavity, Percutaneous Approach (ICD-10-PCS; 2018-11-18)
PROC: 0W9G3ZZ Drainage of Peritoneal Cavity, Percutaneous Approach (ICD-10-PCS; 2018-11-24)
PROC: 02HV33Z Insertion of Infusion Device into Superior Vena Cava, Percutaneous Approach (ICD-10-PCS; 2018-11-27)
PROC: B5181ZA Fluoroscopy of Superior Vena Cava using Low Osmolar Contrast, Guidance (ICD-10-PCS; 2018-11-27)
PROC: B548ZZA Ultrasonography of Superior Vena Cava, Guidance (ICD-10-PCS; 2018-11-27)
PROC: 0W9G3ZZ Drainage of Peritoneal Cavity, Percutaneous Approach (ICD-10-PCS; 2018-11-30)
PROC: 0DH63UZ Insertion of Feeding Device into Stomach, Percutaneous Approach (ICD-10-PCS; principal; 2018-12-03 12:00)
PROC: 0W9G3ZZ Drainage of Peritoneal Cavity, Percutaneous Approach (ICD-10-PCS; 2018-12-04)
PROC: 02HV33Z Insertion of Infusion Device into Superior Vena Cava, Percutaneous Approach (ICD-10-PCS; 2018-12-05)
PROC: B5181ZA Fluoroscopy of Superior Vena Cava using Low Osmolar Contrast, Guidance (ICD-10-PCS; 2018-12-05)
PROC: B548ZZA Ultrasonography of Superior Vena Cava, Guidance (ICD-10-PCS; 2018-12-05)
PROC: 0W9G3ZZ Drainage of Peritoneal Cavity, Percutaneous Approach (ICD-10-PCS; 2018-12-08)
PROC: 0T9B70Z Drainage of Bladder with Drainage Device, Via Natural or Artificial Opening (ICD-10-PCS; 2018-12-08)
DX: C78.6 Secondary malignant neoplasm of retroperitoneum and peritoneum (principal); I26.99 Other pulmonary embolism without acute cor pulmonale; C56.9 Malignant neoplasm of unspecified ovary; M48.56XA Collapsed vertebra, not elsewhere classified, lumbar region, initial encounter for fracture; E87.1 Hypo-osmolality and hyponatremia; J91.0 Malignant pleural effusion; N13.30 Unspecified hydronephrosis; R18.0 Malignant ascites; C79.89 Secondary malignant neoplasm of other specified sites; E46 Unspecified protein-calorie malnutrition; K56.600 Partial intestinal obstruction, unspecified as to cause; Z66 Do not resuscitate; Z51.5 Encounter for palliative care; G89.3 Neoplasm related pain (acute) (chronic); I10 Essential (primary) hypertension; M54.9 Dorsalgia, unspecified; K20.9 Esophagitis, unspecified; Z86.711 Personal history of pulmonary embolism; Z92.21 Personal history of antineoplastic chemotherapy; Z68.32 Body mass index [BMI] 32.0-32.9, adult; Z79.01 Long term (current) use of anticoagulants; Z86.718 Personal history of other venous thrombosis and embolism; Z90.710 Acquired absence of both cervix and uterus
CPT/HCPCS: 36415; 36569; 36585; 36597; 49083; 71045; 74018; 74176; 74177; 74250; 76705; 76937; 77001; 80048; 80053; 81001; 81003; 82962; 83735; 84100; 84134; 84478; 85025; 85610; 87015; 87070; 87075; 87086; 87116; 87205; 87206; 87324; 93005; 99285; B4087; G0378; J0610; J0690; J1100; J2405; J2997; J3010; J3475; J3480; J7042; J9045; J9201; P9047; Q9966; Q9967; C1751; J1200; J2060; J2270; J2765; J3420; J3490; J7030; J7050; J7120

== ENCOUNTER 2018-12-11 13:32 | Inpatient (IN) | payer OTHER ==
[~2018-12-11] VITALS: Ht 160 cm; Wt 83.0 kg
[2018-12-11] MEDS ORDERED: MORPHINE SULFATE 4 MG/ML, 1ML IVPush PRN ×3 (14:30)
[2018-12-11] MEDS ORDERED: PLEASE ENTER HEIGHT AND WEIGHT MC SCH (14:30)
[2018-12-11] MEDS: LORazepam 2 MG/ML, 1ML IVPush PRN ×3 (15:01→22:12)
[2018-12-11] MEDS ORDERED: FENTANYL 50 MCG PATCH TD SCH (16:00)
[2018-12-11 16:15] VITALS: BP 112/77
[2018-12-11] MEDS: SCOPOLAMINE PATCH, 1.5MG PATCH.TD72 TD SCH (16:54)
[2018-12-12] MEDS: LORazepam 2 MG/ML, 1ML IVPush PRN ×5 (05:01→22:02)
[2018-12-12] MEDS: ATROPINE OPHTH SOLN 1%, 5ML BC PRN (10:57)
[2018-12-13] MEDS: LORazepam 2 MG/ML, 1ML IVPush PRN ×2 (02:49→05:50)
[2018-12-13] MEDS: LORazepam 2 MG/ML, 1ML IVPush SCH (20:59)
[2018-12-14] MEDS: ATROPINE OPHTH SOLN 1%, 5ML BC PRN ×2 (04:20→15:29)
[2018-12-14] MEDS: LORazepam 2 MG/ML, 1ML IVPush SCH (10:14)
[2018-12-14] MEDS ORDERED: LORazepam 2 MG/ML, 1ML IVPush SCH (15:00)
[2018-12-14] MEDS: SCOPOLAMINE PATCH, 1.5MG PATCH.TD72 TD SCH (15:30)
== END 2018-12-14 22:15 | disposition expired | DRG 374 ==
LOC: 3NW 13:48
PROVIDERS: ADMIT Internal Medicine; ATTEND Internal Medicine
DX: C78.6 Secondary malignant neoplasm of retroperitoneum and peritoneum (principal); G93.41 Metabolic encephalopathy; K56.609 Unspecified intestinal obstruction, unspecified as to partial versus complete obstruction; E87.0 Hyperosmolality and hypernatremia; I82.622 Acute embolism and thrombosis of deep veins of left upper extremity; N13.30 Unspecified hydronephrosis; C79.60 Secondary malignant neoplasm of unspecified ovary; R18.0 Malignant ascites; E88.09 Other disorders of plasma-protein metabolism, not elsewhere classified; Z66 Do not resuscitate; Z85.43 Personal history of malignant neoplasm of ovary; Z92.21 Personal history of antineoplastic chemotherapy
CPT/HCPCS: G0378; J2270; J2060